=== PATIENT | female | born 1960 | race African-American/Black ===

== ENCOUNTER 2017-07-25 10:42 | Outpatient (CLI) | payer MEDICARE, OTHER ==
[~2017-07-25 10:42] MED LIST: AMLODIPINE BESYL5 MG ORAL; ASPIR 8181 MG GT; CLONIDINE0.1 MG GT; COLACE100 MG ORAL; DILTIAZEM 24HR120 M1 ORAL; FIBERSOURCE HN GT; HUMALOG100 UNIT/4 SUBQ; LEVEMIR100 UNIT/1 SUBQ; LINZESS145 MCG PO; LIPITOR20 MG GT; METOPROLOL SUC100 MG ORAL; MONTELUKAST SOD10 MG ORAL; NOVOLIN R100 UNIT/1 SUBQ; QUINAPRIL HCL20 MG PO; TAPAZOLE10 MG GT; TRADJENTA5 MG GT
[2017-07-25 11:12] VITALS: BP 125/75
--- NOTE | 2017-07-26 13:20 | GI Progress Note ---
Assessment/Plan Problems: (1) Constipation ICD Codes: K59.00 - Constipation, unspecified SNOMED: 77863955 Status: stable Status Narrative Seen with Dr. Cardenas. Assessment/Plan wilman verdugo trial trulance + miralax + dulcolax repeat colonoscopy when constipation improved RTC x 2 months update 08/01/17 >> Trulance not covered by insurance, will do trial of lactulose prior to resubmitting PA. Subjective Gastrointestinal/Abdominal: Reports: constipated Objective BP 125/75 P 82 96 RA General Appearance: WD/WN, no apparent distress, alert Cardiovascular: normal rate Respiratory/Chest: normal breath sounds, no respiratory distress Abdominal Exam: normal bowel sounds, non tender, soft Extremities: normal range of motion, non-tender Estefania Carpio N.P. Jul 26, 2017 13:20
== END 2017-07-25 11:15 | disposition home or self-care (01) ==
LOC: PAN 10:42
DX: K59.00 Constipation, unspecified (principal)
CPT/HCPCS: 99212

== ENCOUNTER 2017-10-14 12:39 | Inpatient (IN) | payer MEDICARE, OTHER ==
[~2017-10-14] VITALS: Ht 170.2 cm; Wt 61.5 kg
[2017-10-14] MEDS ORDERED: Isovue-300 100ml vial INJ PRN (13:30)
[2017-10-14 14:18] LABS: APPEARANCE,URINE CLEAR; BILIRUBIN, URINE NEGATIVE (NEGATIVE); GLUCOSE, URINE (UA) NEGATIVE (NEGATIVE); KETONES,URINE NEGATIVE (NEGATIVE); LEUKOCYTE ESTERASE ,URINE 1+ (NEGATIVE); NITRITE,URINE NEGATIVE (NEGATIVE); PH,URINE 6 (4.5-8.0); PROTEIN,URINE 1+ (NEGATIVE); UROBILINOGEN,URINE NORMAL MG/DL (0.0-1.0)
[2017-10-14 14:26] LABS: COLOR,URINE YELLOW
[2017-10-14 15:03] LABS: HEMATOCRIT 41.5 % (37.0-47.0); HEMOGLOBIN 14.5 G/DL (12.0-16.0); MEAN CORPUSCULAR VOLUME 91 FL (80-99); PLATELET COUNT 213 K/UL (150-450); RED BLOOD COUNT 4.58 M/UL (4.20-5.40); WHITE BLOOD COUNT 11.3 K/UL (4.8-10.8)
[2017-10-14 15:15] LABS: ALANINE AMINOTRANSFERASE 36 U/L (12-78); ALBUMIN 3.8 G/DL (3.4-5.0); ALBUMIN/GLOBULIN RATIO 0.8 (1.0-2.7); ALKALINE PHOSPHATASE 58 U/L (46-116); ANION GAP 14 mmol/L (5-15); ASPARTATE AMINO TRANSFERASE 44 U/L (15-37); BILIRUBIN,TOTAL 0.6 MG/DL (0.2-1.0); BLOOD UREA NITROGEN 14 mg/dL (7-18); CALCIUM 8.7 MG/DL (8.5-10.1); CARBON DIOXIDE 19 MMOL/L (21-32); CHLORIDE 105 MMOL/L (98-107); POTASSIUM 2.8 MMOL/L (3.5-5.1); SODIUM 138 MMOL/L (136-145)
--- NOTE | 2017-10-14 16:01 | Emergency Room Report ---
History of Present Illness General Chief Complaint: Abdominal Pain Source: Family Member Present Illness HPI 57-year-old female presents to the emergency department for demonstrating signs of discomfort/pain upon palpation of the abdomen. She presents with her son whom takes care of her and states that he is concerned that she has some sort of blockage as he is noticing some progressive swelling to the right lower side of the abdomen and patient demonstrates tenderness. Patient denies pain at this time she is noted to have a history of dementia as well as CVA with left- sided residual deficit. Son states that last bowel movement was this morning and was a small amount of stool that was liquid in consistency. Denies Vomiting He Reports Normal Appetite and Normal Fluid Consumption from the Patient. Son states that patient has a long-standing history of constipation as well. History of present illness and ROS are limited due to patient being a poor historian. Information was primarily provided by son. Allergies: Coded Allergies: No Known Allergies (Unverified , 12/03/13) Patient History Past Medical History: see triage record Past Surgical History: none Pertinent Family History: none Reviewed Nursing Documentation: PMH: Agreed; PSxH: Agreed Nursing Documentation-PMH Past Medical History: No History, Except For Hx Cardiac Problems: Yes Hx Hypertension: Yes Hx Diabetes: Yes Hx Cancer: No Hx Gastrointestinal Problems: Yes Hx Neurological Problems: Yes Hx Cerebrovascular Accident: Yes - 01/2011-left sided weakness Review of Systems All Other Systems: negative except mentioned in HPI Physical Exam Vital Signs Date Time Temp Pulse Resp B/P (MAP) Pulse Ox O2 Delivery O2 Flow Rate FiO2 10/14/17 13:03 97.8 63 14 117/75 95 Room Air 97.9 Sp02 EP Interpretation: reviewed, normal General Appearance: no apparent distress, alert, GCS 15, non-toxic, Chronically Ill Head: normocephalic, atraumatic Eyes: bilateral eye normal inspection, bilateral eye PERRL ENT: hearing grossly normal, normal voice Neck: full range of motion Respiratory: chest non-tender, lungs clear, normal breath sounds, speaking full sentences Cardiovascular #1: regular rate, rhythm, no edema Gastrointestinal: normal bowel sounds, non tender, soft Rectal: deferred Genitourinary: other - bladder vs uterine ttp. right sided distention Musculoskeletal: back normal, normal range of motion, non-tender Neurologic: alert, responsive, motor strength/tone normal, sensory intact, speech normal, motor weakness - Left sided residual deficit, grossly normal Psychiatric: other - cognitively impaired but answers some questions. Skin: normal color, no rash, warm/dry, well hydrated Lymphatic: no adenopathy Medical Decision Making PA Attestation Dr. Horton is my supervising Physician whom patient management has been discussed with. Diagnostic Impression: Primary Impression: Urinary obstruction, unspecified Additional Impression: Impacted stool in rectum ER Course 57-year-old female presents to the emergency department for demonstrating signs of discomfort/pain upon palpation of the abdomen. She presents with her son whom takes care of her and states that he is concerned that she has some sort of blockage as he is noticing some progressive swelling to the right lower side of the abdomen and patient demonstrates tenderness. Patient denies pain at this time she is noted to have a history of dementia as well as CVA with left- sided residual deficit. Son states that last bowel movement was this morning and was a small amount of stool that was liquid in consistency. Denies Vomiting He Reports Normal Appetite and Normal Fluid Consumption from the Patient. Son states that patient has a long-standing history of constipation as well. History of present illness and ROS are limited due to patient being a poor historian. Information was primarily provided by son. Ddx considered but are not limited to Diverticulitis, acute appy, diarrhea,UC, PUD, GE, pancreatitis, gallstone, Urinary obstruction, constipation just to name a few. Vital signs: are WNL, pt. is afebrile H&PE are most consistent with abdominal tenderness with right sided distention. ORDERS: -CBC: wbs's 11.3 -CMP: Potassium 2.8 -- given KCL 40 Meq PO -lipase: Unremarkable -UA: Unremarkable- Occasional bacteria, 1+ leukocytes, no white blood cells, some RBCs. These results are questionable with contamination. Will await reflex culture. -Bedside US: large fluid filled enlargement that is contained in the right lower quadrant starting midline, Difficult to determine etiology or identify, suspect urinary bladder. awaiting CT results by radiologist. -CT abdomen and pelvis with IV and oral contrast: Moderate distention of the urinary bladder with obstruction noted secondary to fecal impaction of the rectum. " ED INTERVENTIONS: - Vaughn Inserted -40 Meq of KCL PO DISPOSITION: at this time pt. will be admitted to Dr. Wilburn for Bladder outlet obstruction and severe constipation. Dr. Wilburn agreed to admit the pt. and to continue pt. care management. Labs Test 10/14/17 14:06 10/14/17 14:50 Urine Color Yellow Urine Appearance Clear Urine pH 6 (4.5-8.0) Urine Specific [place] 1.010 (1.005-1.035) Urine Protein 1+ (NEGATIVE) Urine Glucose (UA) Negative (NEGATIVE) Urine Ketones Negative (NEGATIVE) Urine Occult Blood 1+ (NEGATIVE) Urine Nitrite Negative (NEGATIVE) Urine Bilirubin Negative (NEGATIVE) Urine Urobilinogen Normal MG/DL (0.0-1.0) Urine Leukocyte Esterase 1+ (NEGATIVE) Urine RBC 5-10 /HPF (0 - 2) Urine WBC 0-2 /HPF (0 - 2) Urine Squamous Epithelial Cells Few /LPF (NONE/OCC) Urine Bacteria Occasional /HPF (NONE) White Blood Count 11.3 K/UL (4.8-10.8) Red Blood Count 4.58 M/UL (4.20-5.40) Hemoglobin 14.5 G/DL (12.0-16.0) Hematocrit 41.5 % (37.0-47.0) Mean Corpuscular Volume 91 FL (80-99) Mean Corpuscular Hemoglobin 31.6 PG (27.0-31.0) Mean Corpuscular Hemoglobin Concent 34.9 G/DL (32.0-36.0) Red Cell Distribution Width 12.0 % (11.6-14.8) Platelet Count 213 K/UL (150-450) Mean Platelet Volume 7.3 FL (6.5-10.1) Neutrophils (%) (Auto) % (45.0-75.0) Lymphocytes (%) (Auto) % (20.0-45.0) Monocytes (%) (Auto) % (1.0-10.0) Eosinophils (%) (Auto) % (0.0-3.0) Basophils (%) (Auto) % (0.0-2.0) Differential Total Cells Counted 100 Neutrophils % (Manual) 81 % (45-75) Lymphocytes % (Manual) 11 % (20-45) Monocytes % (Manual) 7 % (1-10) Eosinophils % (Manual) 1 % (0-3) Basophils % (Manual) 0 % (0-2) Band Neutrophils 0 % (0-8) Platelet Estimate Adequate Platelet Morphology Normal Red Blood Cell Morphology Normal Sodium Level 138 MMOL/L (136-145) Potassium Level 2.8 MMOL/L (3.5-5.1) Chloride Level 105 MMOL/L (98-107) Carbon Dioxide Level 19 MMOL/L (21-32) Anion Gap 14 mmol/L (5-15) Blood Urea Nitrogen 14 mg/dL (7-18) Creatinine 1.0 MG/DL (0.55-1.30) Estimat Glomerular Filtration Rate > 60 mL/min (>60) Glucose Level 113 MG/DL (74-106) Calcium Level 8.7 MG/DL (8.5-10.1) Total Bilirubin 0.6 MG/DL (0.2-1.0) Aspartate Amino Transf (AST/SGOT) 44 U/L (15-37) Alanine Aminotransferase (ALT/SGPT) 36 U/L (12-78) Alkaline Phosphatase 58 U/L (46-116) Total Protein 8.5 G/DL (6.4-8.2) Albumin 3.8 G/DL (3.4-5.0) Globulin 4.7 g/dL Albumin/Globulin Ratio 0.8 (1.0-2.7) Lipase 294 U/L (73-393) CT/MRI/US Diagnostic Results CT/MRI/US Diagnostic Results : Imaging Test Ordered: CT Abdomen and Pelvis With IV and Oral Contrast Impression "IMPRESSION: 1. Markedly distended, stool-filled rectum (rectal fecalith), with probable at least mild circumferential rectal wall thickening, possibly secondary to stercoral proctitis. 2. Markedly distended urinary bladder (estimated volume = 2000 cc), possibly secondary to bladder outlet obstruction due to the distended stool-filled rectum; mild to moderate probable associated bilateral hydroureteronephrosis. 3. Small hyperenhancing indeterminant subcapsular hepatic nodule. Further evaluation with nonemergent targeted hepatic ultrasound is suggested." Per official radiology report- Please see report for specific details. Last Vital Signs Date Time Temp Pulse Resp B/P (MAP) Pulse Ox O2 Delivery O2 Flow Rate FiO2 10/14/17 13:03 97.8 63 14 117/75 95 Room Air 97.9 Disposition: ADMITTED INPATIENT Condition: Serious Referrals: NON PHYSICIAN (PCP) Mala Hodge Oct 14, 2017 16:01
[2017-10-14 16:11] VITALS: BP 119/79
--- NOTE | 2017-10-14 18:08 | Diagnostic Imaging Report ---
EXAM: CT Abdomen and Pelvis With Intravenous Contrast CLINICAL HISTORY: 57-year-old female with abdominal pain. TECHNIQUE: Axial computed tomography images of the abdomen and pelvis with intravenous contrast. Oral contrast was administered. Coronal and sagittal reformatted images were created and reviewed. CTDI is 11.81 mGy and DLP is 639 mGy-cm. One or more of the following dose reduction techniques were used: automated exposure control, adjustment of the mA and/or kV according to patient size, use of iterative reconstruction technique. COMPARISON: None. FINDINGS: Lung bases: Unremarkable. ABDOMEN: Liver: Ill-defined, subcapsular hyperenhancing nodular focus within the lateral dome of the liver, measuring up to approximately 18 mm in diameter. Gallbladder and bile ducts: Status post cholecystectomy. Pancreas: Unremarkable. Spleen: Unremarkable. Adrenals: Unremarkable. Kidneys and ureters: Relatively symmetric, mild to moderate bilateral hydroureteronephrosis. Stomach and bowel: Markedly distended, stool-filled rectum, measuring up to 11.5 cm in diameter, with probable at least mild circumferential rectal wall thickening. Air-fluid levels within majority of the remaining large bowel. No pathologically dilated bowel loops. PELVIS: Appendix: Unremarkable. Bladder: Markedly distended urinary bladder (estimated volume = 2000 cc). Reproductive: Elongation of the vagina and superior displacement of the uterus abutting the distended bladder dome. ABDOMEN and PELVIS: Intraperitoneal space: Trace ascites. No free air. Bones/joints: No acute abnormality. Soft tissues: Probable scar. Pelvic floor descent. Vasculature: Mild aortic calcified atherosclerotic plaque. Lymph nodes: No pathologically enlarged lymph nodes. IMPRESSION: 1. Markedly distended, stool-filled rectum (rectal fecalith), with probable at least mild circumferential rectal wall thickening, possibly secondary to stercoral proctitis. 2. Markedly distended urinary bladder (estimated volume = 2000 cc), possibly secondary to bladder outlet obstruction due to the distended stool-filled rectum; mild to moderate probable associated bilateral hydroureteronephrosis. 3. Small hyperenhancing indeterminant subcapsular hepatic nodule. Further evaluation with nonemergent targeted hepatic ultrasound is suggested.
[2017-10-14 21:15] VITALS: BP 125/71
[2017-10-15 04:00] VITALS: BP 114/71
[2017-10-15] MEDS: NovoLOG Insulin Flexpen SUBQ SCH ×4 (06:30→20:49)
[2017-10-15 08:00] VITALS: BP 109/73
[2017-10-15] MEDS: Lisinopril 20mg tab ORAL SCH (08:56)
[2017-10-15] MEDS: Montelukast 10mg tablet ORAL SCH (08:56)
[2017-10-15] MEDS: Docusate 100mg cap ORAL SCH ×2 (08:56→18:26)
[2017-10-15] MEDS: Heparin 5000 units/ml inj SUBQ SCH ×2 (08:59→20:50)
[2017-10-15] MEDS: D5 1/2NS 1,000 ML IV SCH (09:22)
--- NOTE | 2017-10-15 10:38 | Consultation ---
History of Present Illness General Date patient seen: Oct 15, 2017 Chief Complaint: Abdominal Pain Present Illness HPI 57 year old female with hx of CVA, HtN, Asthma, DM, bed bound brought in for CC of constipation and urinary obstruction. Pt is aphasic and entire hx is taken from the chart, and pt's son. Pt is currently awake, not communicating. a whitney is in place which is draining normally. Allergies: Coded Allergies: No Known Allergies (Unverified , 12/03/13) Medication History Scheduled Amlodipine Besylate* (Amlodipine Besylate*), 5 MG ORAL DAILY, (Reported) Insulin Detemir (Levemir), 12 SUBQ BEDTIME, (Reported) Insulin Lispro (Humalog), 0 SUBQ SLIDING SCALE, (Reported) Linaclotide (Linzess), 145 MCG PO DAILY, (Reported) Metoprolol Succinate* (Metoprolol Succinate*), 100 MG ORAL HS, (Reported) Montelukast Sodium* (Montelukast Sodium*), 10 MG ORAL DAILY, (Reported) Quinapril Hcl (Quinapril Hcl), 20 MG PO DA, (Reported) Patient History Healthcare decision maker Resuscitation status Full Code Advanced Directive on File No Past Medical/Surgical History Past Medical/Surgical History: (1) Hypertension (2) History of asthma (3) DM (diabetes mellitus) Review of Systems All Other Systems: negative except mentioned in HPI Physical Exam General Appearance: WD/WN Lines, tubes and drains: peripheral HEENT: normocephalic, atraumatic Neck: non-tender, normal alignment Respiratory/Chest: chest wall non-tender, lungs clear Breasts: no masses Cardiovascular/Chest: normal peripheral pulses Abdomen: normal bowel sounds, non tender Genitourinary/Rectal: normal genital exam Extremities: normal range of motion Skin Exam: normal pigmentation Last 24 Hour Vital Signs Date Time Temp Pulse Resp B/P (MAP) Pulse Ox O2 Delivery O2 Flow Rate FiO2 10/15/17 08:56 109/73 10/15/17 08:56 66 109/73 10/15/17 08:00 97.5 66 20 109/73 100 Room Air 97.5 10/15/17 04:00 97.1 65 19 114/71 95 Room Air 97.1 10/14/17 21:45 97.8 63 14 119/79 95 Room Air 97.9 10/14/17 21:15 97.4 89 18 125/71 94 Room Air 97.4 10/14/17 16:11 63 119/79 95 Room Air 10/14/17 13:03 97.8 63 14 117/75 95 Room Air 97.9 Laboratory Tests Test 10/14/17 14:06 10/14/17 14:50 Urine Color Yellow Urine Appearance Clear Urine pH 6 (4.5-8.0) Urine Specific [place] 1.010 (1.005-1.035) Urine Protein 1+ (NEGATIVE) H Urine Glucose (UA) Negative (NEGATIVE) Urine Ketones Negative (NEGATIVE) Urine Occult Blood 1+ (NEGATIVE) H Urine Nitrite Negative (NEGATIVE) Urine Bilirubin Negative (NEGATIVE) Urine Urobilinogen Normal MG/DL (0.0-1.0) Urine Leukocyte Esterase 1+ (NEGATIVE) H Urine RBC 5-10 /HPF (0 - 2) H Urine WBC 0-2 /HPF (0 - 2) Urine Squamous Epithelial Cells Few /LPF (NONE/OCC) Urine Bacteria Occasional /HPF (NONE) White Blood Count 11.3 K/UL (4.8-10.8) H Red Blood Count 4.58 M/UL (4.20-5.40) Hemoglobin 14.5 G/DL (12.0-16.0) Hematocrit 41.5 % (37.0-47.0) Mean Corpuscular Volume 91 FL (80-99) Mean Corpuscular Hemoglobin 31.6 PG (27.0-31.0) H Mean Corpuscular Hemoglobin Concent 34.9 G/DL (32.0-36.0) Red Cell Distribution Width 12.0 % (11.6-14.8) Platelet Count 213 K/UL (150-450) Mean Platelet Volume 7.3 FL (6.5-10.1) Neutrophils (%) (Auto) % (45.0-75.0) Lymphocytes (%) (Auto) % (20.0-45.0) Monocytes (%) (Auto) % (1.0-10.0) Eosinophils (%) (Auto) % (0.0-3.0) Basophils (%) (Auto) % (0.0-2.0) Differential Total Cells Counted 100 Neutrophils % (Manual) 81 % (45-75) H Lymphocytes % (Manual) 11 % (20-45) L Monocytes % (Manual) 7 % (1-10) Eosinophils % (Manual) 1 % (0-3) Basophils % (Manual) 0 % (0-2) Band Neutrophils 0 % (0-8) Platelet Estimate Adequate Platelet Morphology Normal Red Blood Cell Morphology Normal Sodium Level 138 MMOL/L (136-145) Potassium Level 2.8 MMOL/L (3.5-5.1) L Chloride Level 105 MMOL/L (98-107) Carbon Dioxide Level 19 MMOL/L (21-32) L Anion Gap 14 mmol/L (5-15) Blood Urea Nitrogen 14 mg/dL (7-18) Creatinine 1.0 MG/DL (0.55-1.30) Estimat Glomerular Filtration Rate > 60 mL/min (>60) Glucose Level 113 MG/DL (74-106) H Calcium Level 8.7 MG/DL (8.5-10.1) Total Bilirubin 0.6 MG/DL (0.2-1.0) Aspartate Amino Transf (AST/SGOT) 44 U/L (15-37) H Alanine Aminotransferase (ALT/SGPT) 36 U/L (12-78) Alkaline Phosphatase 58 U/L (46-116) Total Protein 8.5 G/DL (6.4-8.2) H Albumin 3.8 G/DL (3.4-5.0) Globulin 4.7 g/dL Albumin/Globulin Ratio 0.8 (1.0-2.7) L Lipase 294 U/L (73-393) Height (Feet): 5 Height (Inches): 7.00 Weight (Pounds): 140 Medications Current Medications Medications (Trade) Dose Ordered Sig/Aleksandr Route PRN Reason Start Time Stop Time Status Last Admin Dose Admin Amlodipine Besylate (Norvasc) 5 mg DAILY ORAL 10/15/17 09:00 11/14/17 08:59 10/15/17 08:56 Bisacodyl (Dulcolax) 10 mg BID PRN RECTAL Constipation 10/15/17 06:15 11/14/17 06:14 Dextrose (Dextrose 50%) 25 ml STAT PRN IV Hypoglycemia 10/15/17 06:15 11/14/17 06:14 Dextrose (Dextrose 50%) 50 ml STAT PRN IV Hypoglycemia 10/15/17 06:15 11/14/17 06:14 Dextrose/Sodium Chloride 1,000 ml @ 70 mls/hr [id number] IV 10/15/17 09:00 11/14/17 08:59 10/15/17 09:22 Docusate Sodium (Colace) 100 mg TWICE A DAY ORAL 10/15/17 09:00 11/14/17 08:59 10/15/17 08:56 Heparin Sodium (Porcine) (Heparin 5000 units/ml) 5,000 units EVERY 12 HOURS SUBQ 10/15/17 09:00 11/14/17 08:59 10/15/17 08:59 Insulin Aspart (NovoLOG) BEFORE MEALS AND HS SUBQ 10/15/17 06:30 11/14/17 06:29 Iopamidol (Isovue-300 100ml) 100 ml NOW PRN INJ Radiology Procedure 10/14/17 13:30 Lactulose (Cephulac) 10 gm THREE TIMES A DAY ORAL 10/15/17 13:00 11/14/17 12:59 Lisinopril (Prinivil) 20 mg DAILY ORAL 10/15/17 09:00 11/14/17 08:59 10/15/17 08:56 Metoprolol Succinate (Toprol XL) 100 mg QHS ORAL 10/15/17 21:00 11/14/17 20:59 Mineral Oil (Fleet's Mineral Oil Enema) 133 ml ONCE ONCE RECTAL 10/15/17 11:25 10/15/17 11:26 Montelukast Sodium (Singulair) 10 mg DAILY ORAL 10/15/17 09:00 11/14/17 08:59 10/15/17 08:56 Non-Formulary Medication (Non-Formulary Med) 1 ea DAILY ORAL 10/15/17 09:00 11/14/17 08:59 UNV Sodium Phosphate (Fleet's Sodium Phosl Enema) 133 ml DAILY PRN RECTAL Constipation 10/15/17 06:15 11/14/17 06:14 Assessment/Plan Problem List: (1) Impacted stool in rectum ICD Codes: K56.41 - Fecal impaction SNOMED: 85388926 (2) History of asthma ICD Codes: Z87.09 - Personal history of other diseases of the respiratory system SNOMED: 079034102 (3) Hypertension ICD Codes: I10 - Essential (primary) hypertension SNOMED: 46966554 (4) Urinary obstruction, unspecified ICD Codes: N13.9 - Obstructive and reflux uropathy, unspecified SNOMED: 5861326 (5) DM (diabetes mellitus) ICD Codes: E11.9 - Type 2 diabetes mellitus without complications SNOMED: 94374188 Assessment/Plan respiratory treatment prn continue Montelukast GI evaluation sliding scale dvt prophylaxis check electrolytes all notes and meds reviewed. Bridget Macias MD Oct 15, 2017 10:38
[2017-10-15] MEDS ORDERED: Fleet's Mineral Oil Enema RECTAL ONE (11:25)
[2017-10-15 12:00] VITALS: BP 126/78
[2017-10-15] MEDS: Fleet's Enema 133ml RECTAL PRN ×2 (12:04→12:11)
[2017-10-15] MEDS: Lactulose 10gm/15ml UDC ORAL SCH ×2 (12:24→18:26)
[2017-10-15 16:00] VITALS: BP 121/78
--- NOTE | 2017-10-15 19:45 | History and Physical Report ---
DATE OF ADMISSION: 10/14/2017 TIME SEEN: 8 a.m. CONSULTANTS: 1. Chang Cardenas M.D. 2. Devendra Toth M.D. 3. Bridget Macias M.D. CHIEF COMPLAINT: Bladder outlet obstruction and constipation. BRIEF HISTORY: This is a 57-year-old female who lives at home, presents to [facility] with constipation as per chart. The patient is confused and not really responding to questions. Constipation for several days. Apparently, she was found to have bladder outlet obstruction. Vaughn was placed. She has some bowel movement subsequently. Currently, admitted to medical floor for further treatment. Currently, calm in bed, not talking much. PAST MEDICAL HISTORY: Diabetes, hypertension and hypothyroid. PAST SURGICAL HISTORY: G-tube. MEDICATIONS: Include Toprol, Colace, Norvasc, Singular, Prinivil and Dulcolax. ALLERGIES: Denies. SOCIAL HISTORY: No smoking. No alcohol. No intravenous drug abuse. FAMILY HISTORY: Noncontributory. REVIEW OF SYSTEMS: Unavailable. PHYSICAL EXAMINATION: GENERAL: Lethargic in bed, not really responding to questions. VITAL SIGNS: Show temperature 97 degrees, pulse 65, respirations 19, and blood pressure 114/71. CARDIOVASCULAR: No murmur. LUNGS: Poor exchange. ABDOMEN: Bowel sounds distant. EXTREMITIES: Show no cyanosis, clubbing, or edema. NEUROLOGIC: The patient moves all extremities, slightly weak. LABORATORY AND DIAGNOSTIC DATA: Show white count 11.3, otherwise CBC is normal. BMP show potassium 2.8, current CO2 19, and glucose 113. AST 44. Urinalysis shows 1+ leukocyte esterase. ASSESSMENT: 1. Urinary tract infection. 2. Bladder outlet obstruction. 3. Constipation. 4. Diabetes. 5. Hypertension. 6. Hypothyroid. 7. Hypokalemia. PLAN: 1. Continue previous medications. 2. Replace potassium. 3. OT/PT dietary evaluation. 4. CBC and BMP in morning. 5. Accu-Chek sliding scale. 6. Laxatives. 7. Dr. Cardenas, Dr. Toth, Dr. Macias, Dr. Ornelas, and Dr. Jones will be consulted. We will continue to follow this patient medically. Edgard Wilburn D.O. DR: Cipriano JOB#: [id number] CC:
[2017-10-15 20:00] VITALS: BP 112/74
[2017-10-15] MEDS: Metoprolol Succinate XL 100mg tab ORAL SCH (20:44)
--- NOTE | 2017-10-15 20:45 | Consultation ---
DATE OF CONSULTATION: 10/15/2017 CHIEF COMPLAINT: Constipation. HISTORY OF PRESENT ILLNESS: This is a very pleasant 57-year-old female, known to me from prior admissions. She has history of diabetes, hypothyroidism, and chronic constipation. She had a colonoscopy, which is incomplete because of poor prep. She has been followed in the office for giving a bowel regimen, which included Trulance, MiraLax, and Colace. She is admitted to the hospital mainly for urinary obstruction and also had on the CT scan evidence of stool impaction. So, GI consult requested for evaluation. PAST MEDICAL HISTORY: 1. Diabetes. 2. Hypothyroidism. 3. First degree AV block. 4. Encephalopathy. 5. Dysphagia, requiring G-tube in the past, which has been removed. 6. Chronic constipation. 7. Anemia. PAST SURGICAL HISTORY: Cholecystectomy. MEDICATIONS: Please see medication reconciliation list. ALLERGIES: No known drug allergies. SOCIAL HISTORY: The patient denies any tobacco, alcohol, or drug abuse. FAMILY HISTORY: No family history of GI malignancies. REVIEW OF SYSTEMS: Limited. PHYSICAL EXAMINATION: VITAL SIGNS: Temperature is 97.5 degrees, pulse is 66, respirations 20, and blood pressure is 109/73. HEENT: Normocephalic and atraumatic. Sclerae anicteric. NECK: Supple. No evidence of lymphadenopathy. CARDIOVASCULAR: Regular rhythm. Plus S1 and S2. No obvious murmur. LUNGS: Decreased breath sounds bilaterally based on the supine exam. ABDOMEN: Soft and nontender. The 01:18 from the old G-tube site is completely closed. No rebound. No guarding. No peritoneal sign. EXTREMITIES: No cyanosis, no clubbing, no edema. LABORATORY DATA: White count 7.3, hemoglobin 14, hematocrit 41, and platelets of 213,000. Sodium 138, potassium 2.8, BUN is 14, and creatinine is 1. ASSESSMENT AND PLAN: A 57-year-old female with severe constipation and stool impaction. Plan to put on bowel regimen including Colace, MiraLax and lactulose. We will give her mineral oil enema today. examinations. We will consider increasing the regimen if needed. Chang Vosoghi, M.D. DR: Ni JOB#: [id number] CC:
[2017-10-16] VITALS: BP 109/67
[2017-10-16] MEDS: D5 1/2NS 1,000 ML IV SCH ×2 (00:43→13:06)
[2017-10-16 04:00] VITALS: BP 112/74
[2017-10-16] MEDS: NovoLOG Insulin Flexpen SUBQ SCH ×4 (05:45→21:32)
[2017-10-16 08:00] VITALS: BP 132/68
[2017-10-16] MEDS: Docusate 100mg cap ORAL SCH ×2 (09:38→17:19)
[2017-10-16] MEDS: Montelukast 10mg tablet ORAL SCH (09:38)
[2017-10-16] MEDS: Lisinopril 20mg tab ORAL SCH (09:38)
[2017-10-16] MEDS: Lactulose 10gm/15ml UDC ORAL SCH ×3 (09:39→17:19)
[2017-10-16] MEDS: Heparin 5000 units/ml inj SUBQ SCH ×2 (09:41→21:30)
[2017-10-16 10:39] LABS: BASOPHILS % (AUTO) 1.3 % (0.0-2.0); EOSINOPHILS % (AUTO) 2.5 % (0.0-3.0); HEMATOCRIT 35.1 % (37.0-47.0); HEMOGLOBIN 11.6 G/DL (12.0-16.0); LYMPHOCYTES % (AUTO) 36.7 % (20.0-45.0); MEAN CORPUSCULAR VOLUME 93 FL (80-99); MONOCYTES % (AUTO) 5.9 % (1.0-10.0); NEUTROPHILS % (AUTO) 53.6 % (45.0-75.0); PLATELET COUNT 196 K/UL (150-450); RED CELL DISTRIBUTION WIDTH 12.1 % (11.6-14.8); WHITE BLOOD COUNT 6.6 K/UL (4.8-10.8)
--- NOTE | 2017-10-16 10:45 | GI Progress Note ---
Assessment/Plan Problems: (1) DM (diabetes mellitus) ICD Codes: E11.9 - Type 2 diabetes mellitus without complications SNOMED: 61735641 (2) Constipation ICD Codes: K59.00 - Constipation, unspecified SNOMED: 84441506 (3) Impacted stool in rectum ICD Codes: K56.41 - Fecal impaction SNOMED: 09278697 (4) Dysphagia ICD Codes: R13.10 - Dysphagia, unspecified SNOMED: 93274301, 705248050 Status: stable Status Narrative Discussed with Dr. Cardenas. Assessment/Plan CT AP reviewed >> stool impaction old GT site healed on diet ppi bowel regime >> lactulose + colace + miralax PT/OT evaluation fu labs The patient was seen and examined at bedside and all new and available data was reviewed in the patients chart. I agree with the above findings, impression and plan. (Patient seen earlier today. Signature stamp does not reflect patient encounter time.). - Chang Cardenas MD Subjective Gastrointestinal/Abdominal: Reports: no symptoms Objective Last 24 Hour Vital Signs Date Time Temp Pulse Resp B/P (MAP) Pulse Ox O2 Delivery O2 Flow Rate FiO2 10/16/17 09:38 132/68 10/16/17 09:38 63 132/68 10/16/17 04:00 97.7 76 16 112/74 95 Room Air 97.7 10/16/17 00:00 97.4 74 16 109/67 94 Room Air 97.4 10/15/17 20:44 83 112/78 10/15/17 20:00 97.4 80 16 112/74 96 Room Air 97.4 10/15/17 16:00 98.1 83 18 121/78 96 Room Air 98.1 10/15/17 12:00 98.3 81 20 126/78 96 98.3 10/15/17 12:00 98.3 81 20 126/78 96 Room Air 98.3 Intake and Output 10/15/17 10/16/17 19:00 07:00 Intake Total 540 ml 870 ml Output Total 600 ml 450 ml Balance -60 ml 420 ml Intake Oral 400 ml 120 ml IV Total 140 ml 750 ml Output Urine Total 600 ml 450 ml # Bowel Movements 2 Laboratory Tests Test 10/16/17 09:43 White Blood Count 6.6 K/UL (4.8-10.8) Red Blood Count 3.80 M/UL (4.20-5.40) L Hemoglobin 11.6 G/DL (12.0-16.0) L Hematocrit 35.1 % (37.0-47.0) L Mean Corpuscular Volume 93 FL (80-99) Mean Corpuscular Hemoglobin 30.6 PG (27.0-31.0) Mean Corpuscular Hemoglobin Concent 33.1 G/DL (32.0-36.0) Red Cell Distribution Width 12.1 % (11.6-14.8) Platelet Count 196 K/UL (150-450) Mean Platelet Volume 7.4 FL (6.5-10.1) Neutrophils (%) (Auto) 53.6 % (45.0-75.0) Lymphocytes (%) (Auto) 36.7 % (20.0-45.0) Monocytes (%) (Auto) 5.9 % (1.0-10.0) Eosinophils (%) (Auto) 2.5 % (0.0-3.0) Basophils (%) (Auto) 1.3 % (0.0-2.0) Sodium Level Pending Potassium Level Pending Chloride Level Pending Carbon Dioxide Level Pending Blood Urea Nitrogen Pending Creatinine Pending Estimat Glomerular Filtration Rate Pending Glucose Level Pending Calcium Level Pending Height (Feet): 5 Height (Inches): 7.00 Weight (Pounds): 140 General Appearance: WD/WN, no apparent distress, alert Cardiovascular: normal rate Respiratory/Chest: normal breath sounds, no respiratory distress Abdominal Exam: normal bowel sounds, non tender, soft, GT site - s/p GT site removal, site is healed Extremities: non-tender Lina Carpio NP Oct 16, 2017 10:45
[2017-10-16 11:11] LABS: ANION GAP 11 mmol/L (5-15); BLOOD UREA NITROGEN 6 mg/dL (7-18); CALCIUM 8.5 MG/DL (8.5-10.1); CARBON DIOXIDE 25 MMOL/L (21-32); CHLORIDE 106 MMOL/L (98-107); CREATININE 0.7 MG/DL (0.55-1.30); POTASSIUM 3.4 MMOL/L (3.5-5.1); SODIUM 141 MMOL/L (136-145)
[2017-10-16 12:00] VITALS: BP 117/71
--- NOTE | 2017-10-16 12:36 | General Progress Note ---
Assessment/Plan Problem List: (1) Alteration consciousness ICD Codes: R40.4 - Transient alteration of awareness SNOMED: 3991709 (2) UTI (lower urinary tract infection) ICD Codes: N39.0 - UTI (lower urinary tract infection) SNOMED: 1638873 (3) Hypothyroid ICD Codes: E03.9 - Hypothyroidism, unspecified SNOMED: 07667124 (4) DM (diabetes mellitus) ICD Codes: E11.9 - Type 2 diabetes mellitus without complications SNOMED: 29552150 (5) Hypertension ICD Codes: I10 - Essential (primary) hypertension SNOMED: 78359285 (6) Impacted stool in rectum ICD Codes: K56.41 - Fecal impaction SNOMED: 44909779 (7) Urinary obstruction, unspecified ICD Codes: N13.9 - Obstructive and reflux uropathy, unspecified SNOMED: 0191537 (8) Constipation ICD Codes: K59.00 - Constipation, unspecified SNOMED: 53159319 Status: unchanged Assessment/Plan ot pt diet abx bp bs control laxitives cbc bmp am Subjective Constitutional: Reports: weakness Allergies: Coded Allergies: No Known Allergies (Unverified , 12/03/13) All Systems: reviewed and negative except above Subjective sleepy calm Objective Last 24 Hour Vital Signs Date Time Temp Pulse Resp B/P (MAP) Pulse Ox O2 Delivery O2 Flow Rate FiO2 10/16/17 12:00 97.9 70 18 117/71 98 Room Air 97.9 10/16/17 09:38 132/68 10/16/17 09:38 63 132/68 10/16/17 08:00 98.8 63 18 132/68 97 Room Air 98.8 10/16/17 04:00 97.7 76 16 112/74 95 Room Air 97.7 10/16/17 00:00 97.4 74 16 109/67 94 Room Air 97.4 10/15/17 20:44 83 112/78 10/15/17 20:00 97.4 80 16 112/74 96 Room Air 97.4 10/15/17 16:00 98.1 83 18 121/78 96 Room Air 98.1 Intake and Output 10/15/17 10/16/17 19:00 07:00 Intake Total 540 ml 870 ml Output Total 600 ml 450 ml Balance -60 ml 420 ml Intake Oral 400 ml 120 ml IV Total 140 ml 750 ml Output Urine Total 600 ml 450 ml # Bowel Movements 2 Laboratory Tests 10/16/17 09:43: White Blood Count 6.6, Red Blood Count 3.80L, Hemoglobin 11.6L, Hematocrit 35.1L , Mean Corpuscular Volume 93, Mean Corpuscular Hemoglobin 30.6, Mean Corpuscular Hemoglobin Concent 33.1, Red Cell Distribution Width 12.1, Platelet Count 196, Mean Platelet Volume 7.4, Neutrophils (%) (Auto) 53.6, Lymphocytes (% ) (Auto) 36.7, Monocytes (%) (Auto) 5.9, Eosinophils (%) (Auto) 2.5, Basophils ( %) (Auto) 1.3, Sodium Level 141, Potassium Level 3.4L, Chloride Level 106, Carbon Dioxide Level 25, Anion Gap 11, Blood Urea Nitrogen 6L, Creatinine 0.7, Estimat Glomerular Filtration Rate > 60, Glucose Level 89, Calcium Level 8.5 Height (Feet): 5 Height (Inches): 7.00 Weight (Pounds): 140 General Appearance: lethargic EENT: normal ENT inspection Neck: normal alignment Cardiovascular: normal peripheral pulses, normal rate, regular rhythm Respiratory/Chest: chest wall non-tender, lungs clear, normal breath sounds Abdomen: normal bowel sounds, non tender, soft Extremities: normal inspection Edema: no edema noted Arm (L), no edema noted Arm (R), no edema noted Leg (L), no edema noted Leg (R), no edema noted Pedal (L), no edema noted Pedal (R), no edema noted Generalized Neurologic: motor weakness Skin: normal pigmentation, warm/dry Edgard Wilburn DO Oct 16, 2017 12:36
--- NOTE | 2017-10-16 13:24 | Pulmonology Progress Note ---
Assessment/Plan Problems: (1) History of asthma (2) Impacted stool in rectum (3) Hypertension (4) Urinary obstruction, unspecified (5) DM (diabetes mellitus) Assessment/Plan eating well symptomatic treatment respiratory treatment prn titrate fio2 to sat of 92% sliding scale dc planning Subjective ROS Limited/Unobtainable: No Constitutional: Reports: no symptoms HEENT: Repors: no symptoms Respiratory: Reports: no symptoms Allergies: Coded Allergies: No Known Allergies (Unverified , 12/03/13) Objective Last 24 Hour Vital Signs Date Time Temp Pulse Resp B/P (MAP) Pulse Ox O2 Delivery O2 Flow Rate FiO2 10/16/17 12:00 97.9 70 18 117/71 98 Room Air 97.9 10/16/17 09:38 132/68 10/16/17 09:38 63 132/68 10/16/17 08:00 98.8 63 18 132/68 97 Room Air 98.8 10/16/17 04:00 97.7 76 16 112/74 95 Room Air 97.7 10/16/17 00:00 97.4 74 16 109/67 94 Room Air 97.4 10/15/17 20:44 83 112/78 10/15/17 20:00 97.4 80 16 112/74 96 Room Air 97.4 10/15/17 16:00 98.1 83 18 121/78 96 Room Air 98.1 Intake and Output 10/15/17 10/16/17 19:00 07:00 Intake Total 540 ml 870 ml Output Total 600 ml 450 ml Balance -60 ml 420 ml Intake Oral 400 ml 120 ml IV Total 140 ml 750 ml Output Urine Total 600 ml 450 ml # Bowel Movements 2 General Appearance: WD/WN HEENT: normocephalic, atraumatic Respiratory/Chest: chest wall non-tender, lungs clear Breasts: no masses Cardiovascular: normal peripheral pulses Extremities: no clubbing Skin: no rash Laboratory Tests 10/16/17 09:43: White Blood Count 6.6, Red Blood Count 3.80L, Hemoglobin 11.6L, Hematocrit 35.1L , Mean Corpuscular Volume 93, Mean Corpuscular Hemoglobin 30.6, Mean Corpuscular Hemoglobin Concent 33.1, Red Cell Distribution Width 12.1, Platelet Count 196, Mean Platelet Volume 7.4, Neutrophils (%) (Auto) 53.6, Lymphocytes (% ) (Auto) 36.7, Monocytes (%) (Auto) 5.9, Eosinophils (%) (Auto) 2.5, Basophils ( %) (Auto) 1.3, Sodium Level 141, Potassium Level 3.4L, Chloride Level 106, Carbon Dioxide Level 25, Anion Gap 11, Blood Urea Nitrogen 6L, Creatinine 0.7, Estimat Glomerular Filtration Rate > 60, Glucose Level 89, Calcium Level 8.5 Current Medications Medications (Trade) Dose Ordered Sig/Aleksandr Route PRN Reason Start Time Stop Time Status Last Admin Dose Admin Amlodipine Besylate (Norvasc) 5 mg DAILY ORAL 10/15/17 09:00 11/14/17 08:59 10/16/17 09:38 Bisacodyl (Dulcolax) 10 mg BID PRN RECTAL Constipation 10/15/17 06:15 11/14/17 06:14 Dextrose (Dextrose 50%) 25 ml STAT PRN IV Hypoglycemia 10/15/17 06:15 11/14/17 06:14 Dextrose (Dextrose 50%) 50 ml STAT PRN IV Hypoglycemia 10/15/17 06:15 11/14/17 06:14 Dextrose/Sodium Chloride 1,000 ml @ 70 mls/hr [id number] IV 10/15/17 09:00 11/14/17 08:59 10/16/17 13:06 Docusate Sodium (Colace) 100 mg TWICE A DAY ORAL 10/15/17 09:00 11/14/17 08:59 10/16/17 09:38 Heparin Sodium (Porcine) (Heparin 5000 units/ml) 5,000 units EVERY 12 HOURS SUBQ 10/15/17 09:00 11/14/17 08:59 10/16/17 09:41 Insulin Aspart (NovoLOG) BEFORE MEALS AND HS SUBQ 10/15/17 06:30 11/14/17 06:29 10/15/17 20:49 Iopamidol (Isovue-300 100ml) 100 ml NOW PRN INJ Radiology Procedure 10/14/17 13:30 10/16/17 13:29 Lactulose (Cephulac) 10 gm THREE TIMES A DAY ORAL 10/15/17 13:00 11/14/17 12:59 10/16/17 13:07 Lisinopril (Prinivil) 20 mg DAILY ORAL 10/15/17 09:00 11/14/17 08:59 10/16/17 09:38 Metoprolol Succinate (Toprol XL) 100 mg QHS ORAL 10/15/17 21:00 11/14/17 20:59 Montelukast Sodium (Singulair) 10 mg DAILY ORAL 10/15/17 09:00 11/14/17 08:59 10/16/17 09:38 Non-Formulary Medication (Non-Formulary Med) 1 ea DAILY ORAL 10/15/17 09:00 11/14/17 08:59 UNV Sodium Phosphate (Fleet's Sodium Phosl Enema) 133 ml DAILY PRN RECTAL Constipation 10/15/17 06:15 11/14/17 06:14 10/15/17 12:11 Bridget Macias MD Oct 16, 2017 13:24
[2017-10-16 16:00] VITALS: BP 130/63
[2017-10-16 20:00] VITALS: BP 138/84
[2017-10-16] MEDS: Metoprolol Succinate XL 100mg tab ORAL SCH (21:25)
[2017-10-17 00:26] VITALS: BP 133/78
[2017-10-17] MEDS: D5 1/2NS 1,000 ML IV SCH (04:08)
[2017-10-17 04:36] VITALS: BP_SYST 109; BP_SYST 96; BP_DIAS 57; BP_DIAS 69
[2017-10-17] MEDS: NovoLOG Insulin Flexpen SUBQ SCH ×4 (06:30→21:00)
[2017-10-17 07:22] LABS: HEMATOCRIT 32.8 % (37.0-47.0); HEMOGLOBIN 11.6 G/DL (12.0-16.0); LYMPHOCYTES % (AUTO) 37.4 % (20.0-45.0); MEAN CORPUSCULAR VOLUME 91 FL (80-99); MONOCYTES % (AUTO) 6.1 % (1.0-10.0); NEUTROPHILS % (AUTO) 52.6 % (45.0-75.0); PLATELET COUNT 193 K/UL (150-450); RED CELL DISTRIBUTION WIDTH 12.2 % (11.6-14.8); WHITE BLOOD COUNT 6.7 K/UL (4.8-10.8)
[2017-10-17 07:32] LABS: ANION GAP 10 mmol/L (5-15); BLOOD UREA NITROGEN 5 mg/dL (7-18); CALCIUM 8.4 MG/DL (8.5-10.1); CARBON DIOXIDE 26 MMOL/L (21-32); CHLORIDE 106 MMOL/L (98-107); CREATININE 0.7 MG/DL (0.55-1.30); POTASSIUM 3.1 MMOL/L (3.5-5.1); SODIUM 142 MMOL/L (136-145)
[2017-10-17 08:00] VITALS: BP 119/74
[2017-10-17] MEDS: Lisinopril 20mg tab ORAL SCH (09:00)
[2017-10-17] MEDS: Docusate 100mg cap ORAL SCH ×2 (09:42→17:17)
[2017-10-17] MEDS: Lactulose 10gm/15ml UDC ORAL SCH ×3 (09:42→17:17)
[2017-10-17] MEDS: Montelukast 10mg tablet ORAL SCH (09:42)
[2017-10-17] MEDS: Heparin 5000 units/ml inj SUBQ SCH ×2 (09:44→20:58)
[2017-10-17 11:59] VITALS: BP 106/67
--- NOTE | 2017-10-17 12:57 | Pulmonology Progress Note ---
Assessment/Plan Problems: (1) History of asthma (2) Impacted stool in rectum (3) Hypertension (4) Urinary obstruction, unspecified (5) DM (diabetes mellitus) Assessment/Plan awake, comfortable eating well symptomatic treatment respiratory treatment prn titrate fio2 to sat of 92% sliding scale dc planning Subjective ROS Limited/Unobtainable: No Constitutional: Reports: no symptoms HEENT: Repors: no symptoms Respiratory: Reports: no symptoms Allergies: Coded Allergies: No Known Allergies (Unverified , 12/03/13) Objective Last 24 Hour Vital Signs Date Time Temp Pulse Resp B/P (MAP) Pulse Ox O2 Delivery O2 Flow Rate FiO2 10/17/17 11:59 98.1 69 18 106/67 97 98.1 10/17/17 09:43 69 119/74 10/17/17 09:00 119/74 10/17/17 08:00 97.0 69 18 119/74 100 97.0 10/17/17 04:36 97.7 61 16 96/57 96 97.7 10/17/17 00:26 97.7 80 18 133/78 97 97.7 10/16/17 21:25 84 138/74 10/16/17 20:00 97.8 84 19 138/84 97 97.8 10/16/17 16:00 97.4 70 18 130/63 98 Room Air 97.4 Intake and Output 10/16/17 10/17/17 19:00 07:00 Intake Total 1420 ml 1410 ml Output Total 450 ml 1200 ml Balance 970 ml 210 ml Intake Oral 640 ml IV Total 770 ml 770 ml Other 650 ml Output Urine Total 450 ml 1200 ml # Bowel Movements 1 General Appearance: WD/WN HEENT: normocephalic Respiratory/Chest: chest wall non-tender, lungs clear Breasts: no masses Cardiovascular: normal peripheral pulses Abdomen: normal bowel sounds, no organomegaly Genitourinary: normal external genitalia Extremities: no clubbing Laboratory Tests 10/17/17 06:30: White Blood Count 6.7, Red Blood Count 3.60L, Hemoglobin 11.6L, Hematocrit 32.8L , Mean Corpuscular Volume 91, Mean Corpuscular Hemoglobin 32.1H, Mean Corpuscular Hemoglobin Concent 35.3, Red Cell Distribution Width 12.2, Platelet Count 193, Mean Platelet Volume 7.2, Neutrophils (%) (Auto) 52.6, Lymphocytes (% ) (Auto) 37.4, Monocytes (%) (Auto) 6.1, Eosinophils (%) (Auto) 3.0, Basophils ( %) (Auto) 1.0, Sodium Level 142, Potassium Level 3.1L, Chloride Level 106, Carbon Dioxide Level 26, Anion Gap 10, Blood Urea Nitrogen 5L, Creatinine 0.7, Estimat Glomerular Filtration Rate > 60, Glucose Level 108H, Calcium Level 8.4L Current Medications Medications (Trade) Dose Ordered Sig/Aleksandr Route PRN Reason Start Time Stop Time Status Last Admin Dose Admin Amlodipine Besylate (Norvasc) 5 mg DAILY ORAL 10/15/17 09:00 11/14/17 08:59 10/17/17 09:43 Bisacodyl (Dulcolax) 10 mg BID PRN RECTAL Constipation 10/15/17 06:15 11/14/17 06:14 Dextrose (Dextrose 50%) 25 ml STAT PRN IV Hypoglycemia 10/15/17 06:15 11/14/17 06:14 Dextrose (Dextrose 50%) 50 ml STAT PRN IV Hypoglycemia 10/15/17 06:15 11/14/17 06:14 Dextrose/Sodium Chloride 1,000 ml @ 70 mls/hr [id number] IV 10/15/17 09:00 11/14/17 08:59 10/17/17 04:08 Docusate Sodium (Colace) 100 mg TWICE A DAY ORAL 10/15/17 09:00 11/14/17 08:59 10/17/17 09:42 Heparin Sodium (Porcine) (Heparin 5000 units/ml) 5,000 units EVERY 12 HOURS SUBQ 10/15/17 09:00 11/14/17 08:59 10/17/17 09:44 Insulin Aspart (NovoLOG) BEFORE MEALS AND HS SUBQ 10/15/17 06:30 11/14/17 06:29 10/17/17 12:31 Lactulose (Cephulac) 10 gm THREE TIMES A DAY ORAL 10/15/17 13:00 11/14/17 12:59 10/17/17 12:32 Lisinopril (Prinivil) 20 mg DAILY ORAL 10/15/17 09:00 11/14/17 08:59 10/16/17 09:38 Metoprolol Succinate (Toprol XL) 100 mg QHS ORAL 10/15/17 21:00 11/14/17 20:59 10/16/17 21:25 Montelukast Sodium (Singulair) 10 mg DAILY ORAL 10/15/17 09:00 11/14/17 08:59 10/17/17 09:42 Non-Formulary Medication (Non-Formulary Med) 1 ea DAILY ORAL 10/15/17 09:00 11/14/17 08:59 UNV Sodium Phosphate (Fleet's Sodium Phosl Enema) 133 ml DAILY PRN RECTAL Constipation 10/15/17 06:15 11/14/17 06:14 10/15/17 12:11 Bridget Macias MD Oct 17, 2017 12:57
--- NOTE | 2017-10-17 13:39 | Consultation ---
Consult Note Consult Note 57-year-old female presents to the emergency department for demonstrating signs of discomfort/pain upon palpation of the abdomen. She presents with her son whom takes care of her and states that he is concerned that she has some sort of blockage as he is noticing some progressive swelling to the right lower side of the abdomen and patient demonstrates tenderness. Patient denies pain at this time she is noted to have a history of dementia as well as CVA with left- sided residual deficit. Son states that last bowel movement was this morning and was a small amount of stool that was liquid in consistency. Denies Vomiting He Reports Normal Appetite and Normal Fluid Consumption from the Patient. Son states that patient has a long-standing history of constipation as well. History of present illness and ROS are limited due to patient being a poor historian. Information was primarily provided by son. Past Medical History: No History, Except For Hx Cardiac Problems: Yes Hx Hypertension: Yes Hx Diabetes: Yes Hx Cancer: No Hx Gastrointestinal Problems: Yes Hx Neurological Problems: Yes Hx Cerebrovascular Accident: Yes - 01/2011-left sided weakness Assessment/Plan HypoKalemia Dehydration HTN mild anemia Others: 1) History of asthma (2) Impacted stool in rectum (3) Hypertension (4) Urinary obstruction, unspecified (5) DM (diabetes mellitus) PO KCL DC IV adjust BP meds Anemia DENISHA Romero Oct 17, 2017 13:39
[2017-10-17 14:08] LABS: ALANINE AMINOTRANSFERASE 30 U/L (12-78); ALBUMIN 3.3 G/DL (3.4-5.0); ALKALINE PHOSPHATASE 42 U/L (46-116); ASPARTATE AMINO TRANSFERASE 27 U/L (15-37); BILIRUBIN,DIRECT 0.1 MG/DL (0.0-0.3); BILIRUBIN,TOTAL 0.4 MG/DL (0.2-1.0); CHOLESTEROL 254 MG/DL (< 200); GAMMA GLUTAMYL TRANSPEPTIDASE 28 U/L (5-85); HDL CHOLESTEROL 61 MG/DL (40-60); TRIGLYCERIDES 104 MG/DL (30-150)
--- NOTE | 2017-10-17 14:08 | General Progress Note ---
Assessment/Plan Problem List: (1) Alteration consciousness ICD Codes: R40.4 - Transient alteration of awareness SNOMED: 4158909 (2) UTI (lower urinary tract infection) ICD Codes: N39.0 - UTI (lower urinary tract infection) SNOMED: 9032303 (3) Hypothyroid ICD Codes: E03.9 - Hypothyroidism, unspecified SNOMED: 01679772 (4) DM (diabetes mellitus) ICD Codes: E11.9 - Type 2 diabetes mellitus without complications SNOMED: 55241054 (5) Hypertension ICD Codes: I10 - Essential (primary) hypertension SNOMED: 27795144 (6) Impacted stool in rectum ICD Codes: K56.41 - Fecal impaction SNOMED: 43683557 (7) Urinary obstruction, unspecified ICD Codes: N13.9 - Obstructive and reflux uropathy, unspecified SNOMED: 2555211 (8) Constipation ICD Codes: K59.00 - Constipation, unspecified SNOMED: 32725592 Status: stable, progressing Assessment/Plan ot pt diet abx bp bs control laxitives cbc bmp am dc plan w hh Subjective Constitutional: Reports: weakness Allergies: Coded Allergies: No Known Allergies (Unverified , 12/03/13) All Systems: reviewed and negative except above Subjective sleepy calm Objective Last 24 Hour Vital Signs Date Time Temp Pulse Resp B/P (MAP) Pulse Ox O2 Delivery O2 Flow Rate FiO2 10/17/17 11:59 98.1 69 18 106/67 97 98.1 10/17/17 09:43 69 119/74 10/17/17 09:00 119/74 10/17/17 08:00 97.0 69 18 119/74 100 97.0 10/17/17 04:36 97.7 61 16 96/57 96 97.7 10/17/17 00:26 97.7 80 18 133/78 97 97.7 10/16/17 21:25 84 138/74 10/16/17 20:00 97.8 84 19 138/84 97 97.8 10/16/17 16:00 97.4 70 18 130/63 98 Room Air 97.4 Intake and Output 10/16/17 10/17/17 19:00 07:00 Intake Total 1420 ml 1410 ml Output Total 450 ml 1200 ml Balance 970 ml 210 ml Intake Oral 640 ml IV Total 770 ml 770 ml Other 650 ml Output Urine Total 450 ml 1200 ml # Bowel Movements 1 Laboratory Tests 10/17/17 06:30: White Blood Count 6.7, Red Blood Count 3.60L, Hemoglobin 11.6L, Hematocrit 32.8L , Mean Corpuscular Volume 91, Mean Corpuscular Hemoglobin 32.1H, Mean Corpuscular Hemoglobin Concent 35.3, Red Cell Distribution Width 12.2, Platelet Count 193, Mean Platelet Volume 7.2, Neutrophils (%) (Auto) 52.6, Lymphocytes (% ) (Auto) 37.4, Monocytes (%) (Auto) 6.1, Eosinophils (%) (Auto) 3.0, Basophils ( %) (Auto) 1.0, Sodium Level 142, Potassium Level 3.1L, Chloride Level 106, Carbon Dioxide Level 26, Anion Gap 10, Blood Urea Nitrogen 5L, Creatinine 0.7, Estimat Glomerular Filtration Rate > 60, Glucose Level 108H, Uric Acid [Pending] , Calcium Level 8.4L, Phosphorus Level [Pending], Magnesium Level [Pending], Iron Level [Pending], Unsaturated Iron Binding [Pending], Ferritin [Pending], Total Bilirubin [Pending], Direct Bilirubin [Pending], Gamma Glutamyl Transpeptidase [Pending], Aspartate Amino Transf (AST/SGOT) [Pending], Alanine Aminotransferase (ALT/SGPT) [Pending], Alkaline Phosphatase [Pending], Total Protein [Pending], Albumin [Pending], Triglycerides Level [Pending], Cholesterol Level [Pending], LDL Cholesterol [Pending], HDL Cholesterol [Pending ], Cholesterol/HDL Ratio [Pending], Vitamin B12 Level [Pending], Folate [Pending ], Thyroid Stimulating Hormone (TSH) [Pending] Height (Feet): 5 Height (Inches): 7.00 Weight (Pounds): 140 General Appearance: lethargic, confused EENT: normal ENT inspection Neck: normal alignment Cardiovascular: normal peripheral pulses, normal rate, regular rhythm Respiratory/Chest: chest wall non-tender, lungs clear, normal breath sounds Abdomen: normal bowel sounds, non tender, soft Extremities: normal inspection Edema: no edema noted Arm (L), no edema noted Arm (R), no edema noted Leg (L), no edema noted Leg (R), no edema noted Pedal (L), no edema noted Pedal (R), no edema noted Generalized Neurologic: motor weakness Skin: normal pigmentation, warm/dry Edgard Wilburn DO Oct 17, 2017 14:08
--- NOTE | 2017-10-17 14:09 | Pulmonology Progress Note ---
Assessment/Plan Problems: (1) History of asthma (2) Impacted stool in rectum (3) Hypertension (4) Urinary obstruction, unspecified (5) DM (diabetes mellitus) Assessment/Plan awake, comfortable eating well symptomatic treatment respiratory treatment prn titrate fio2 to sat of 92% sliding scale dc planning Subjective ROS Limited/Unobtainable: No Interval Events: comfortable, ate well Allergies: Coded Allergies: No Known Allergies (Unverified , 12/03/13) Objective Last 24 Hour Vital Signs Date Time Temp Pulse Resp B/P (MAP) Pulse Ox O2 Delivery O2 Flow Rate FiO2 10/17/17 11:59 98.1 69 18 106/67 97 98.1 10/17/17 09:43 69 119/74 10/17/17 09:00 119/74 10/17/17 08:00 97.0 69 18 119/74 100 97.0 10/17/17 04:36 97.7 61 16 96/57 96 97.7 10/17/17 00:26 97.7 80 18 133/78 97 97.7 10/16/17 21:25 84 138/74 10/16/17 20:00 97.8 84 19 138/84 97 97.8 10/16/17 16:00 97.4 70 18 130/63 98 Room Air 97.4 Intake and Output 10/16/17 10/17/17 19:00 07:00 Intake Total 1420 ml 1410 ml Output Total 450 ml 1200 ml Balance 970 ml 210 ml Intake Oral 640 ml IV Total 770 ml 770 ml Other 650 ml Output Urine Total 450 ml 1200 ml # Bowel Movements 1 General Appearance: WD/WN HEENT: normocephalic Respiratory/Chest: chest wall non-tender, lungs clear Cardiovascular: normal peripheral pulses, normal rate Abdomen: normal bowel sounds, soft, non tender Genitourinary: normal external genitalia Neurologic/Psychiatric: direct mail marketer II-XII grossly normal Laboratory Tests 10/17/17 06:30: White Blood Count 6.7, Red Blood Count 3.60L, Hemoglobin 11.6L, Hematocrit 32.8L , Mean Corpuscular Volume 91, Mean Corpuscular Hemoglobin 32.1H, Mean Corpuscular Hemoglobin Concent 35.3, Red Cell Distribution Width 12.2, Platelet Count 193, Mean Platelet Volume 7.2, Neutrophils (%) (Auto) 52.6, Lymphocytes (% ) (Auto) 37.4, Monocytes (%) (Auto) 6.1, Eosinophils (%) (Auto) 3.0, Basophils ( %) (Auto) 1.0, Sodium Level 142, Potassium Level 3.1L, Chloride Level 106, Carbon Dioxide Level 26, Anion Gap 10, Blood Urea Nitrogen 5L, Creatinine 0.7, Estimat Glomerular Filtration Rate > 60, Glucose Level 108H, Uric Acid [Pending] , Calcium Level 8.4L, Phosphorus Level [Pending], Magnesium Level [Pending], Iron Level [Pending], Unsaturated Iron Binding [Pending], Ferritin [Pending], Total Bilirubin [Pending], Direct Bilirubin [Pending], Gamma Glutamyl Transpeptidase [Pending], Aspartate Amino Transf (AST/SGOT) [Pending], Alanine Aminotransferase (ALT/SGPT) [Pending], Alkaline Phosphatase [Pending], Total Protein [Pending], Albumin [Pending], Triglycerides Level [Pending], Cholesterol Level [Pending], LDL Cholesterol [Pending], HDL Cholesterol [Pending ], Cholesterol/HDL Ratio [Pending], Vitamin B12 Level [Pending], Folate [Pending ], Thyroid Stimulating Hormone (TSH) [Pending] Current Medications Medications (Trade) Dose Ordered Sig/Aleksandr Route PRN Reason Start Time Stop Time Status Last Admin Dose Admin Amlodipine Besylate (Norvasc) 2.5 mg DAILY ORAL 10/18/17 09:00 11/14/17 08:59 Bisacodyl (Dulcolax) 10 mg BID PRN RECTAL Constipation 10/15/17 06:15 11/14/17 06:14 Dextrose (Dextrose 50%) 25 ml STAT PRN IV Hypoglycemia 10/15/17 06:15 11/14/17 06:14 Dextrose (Dextrose 50%) 50 ml STAT PRN IV Hypoglycemia 10/15/17 06:15 11/14/17 06:14 Docusate Sodium (Colace) 100 mg TWICE A DAY ORAL 10/15/17 09:00 11/14/17 08:59 10/17/17 09:42 Heparin Sodium (Porcine) (Heparin 5000 units/ml) 5,000 units EVERY 12 HOURS SUBQ 10/15/17 09:00 11/14/17 08:59 10/17/17 09:44 Insulin Aspart (NovoLOG) BEFORE MEALS AND HS SUBQ 10/15/17 06:30 11/14/17 06:29 10/17/17 12:31 Lactulose (Cephulac) 10 gm THREE TIMES A DAY ORAL 10/15/17 13:00 11/14/17 12:59 10/17/17 12:32 Lisinopril (Zestril) 10 mg DAILY ORAL 10/18/17 09:00 11/14/17 08:59 Metoprolol Succinate (Toprol XL) 100 mg QHS ORAL 10/15/17 21:00 11/14/17 20:59 10/16/17 21:25 Montelukast Sodium (Singulair) 10 mg DAILY ORAL 10/15/17 09:00 11/14/17 08:59 10/17/17 09:42 Non-Formulary Medication (Non-Formulary Med) 1 ea DAILY ORAL 10/15/17 09:00 11/14/17 08:59 UNV Potassium Chloride (K-Dur) 40 meq DAILY ORAL 10/18/17 09:00 11/17/17 08:59 Potassium Chloride (K-Dur) 40 meq ONCE ORAL 10/17/17 14:15 10/17/17 15:15 Sodium Phosphate (Fleet's Sodium Phosl Enema) 133 ml DAILY PRN RECTAL Constipation 10/15/17 06:15 11/14/17 06:14 10/15/17 12:11 Bridget Macias MD Oct 17, 2017 14:09
[2017-10-17 14:23] LABS: FERRITIN 160 NG/ML (8-388)
[2017-10-17 14:39] LABS: % IRON SATURATION 35 % (15-50); IRON 71 ug/dL (50-175); TOTAL IRON BINDING CAPACITY 205 ug/dL (250-450)
[2017-10-17 16:00] VITALS: BP 117/69
--- NOTE | 2017-10-17 16:10 | GI Progress Note ---
Assessment/Plan Problems: (1) DM (diabetes mellitus) ICD Codes: E11.9 - Type 2 diabetes mellitus without complications SNOMED: 71450590 (2) Constipation ICD Codes: K59.00 - Constipation, unspecified SNOMED: 54214793 (3) Impacted stool in rectum ICD Codes: K56.41 - Fecal impaction SNOMED: 41343853 (4) Dysphagia ICD Codes: R13.10 - Dysphagia, unspecified SNOMED: 81362623, 162849689 Status: stable Status Narrative Discussed with Dr. Cardenas. Assessment/Plan CT AP reviewed >> stool impaction old GT site healed anemia work up reviewed >> folate deficiency on diet ppi bowel regime >> lactulose + colace + miralax PT/OT evaluation fu labs outpatient GI procedures dc planning The patient was seen and examined at bedside and all new and available data was reviewed in the patients chart. I agree with the above findings, impression and plan. (Patient seen earlier today. Signature stamp does not reflect patient encounter time.). - Chang Cardenas MD Subjective Gastrointestinal/Abdominal: Reports: no symptoms Objective Last 24 Hour Vital Signs Date Time Temp Pulse Resp B/P (MAP) Pulse Ox O2 Delivery O2 Flow Rate FiO2 10/17/17 11:59 98.1 69 18 106/67 97 98.1 10/17/17 09:43 69 119/74 10/17/17 09:00 119/74 10/17/17 08:00 97.0 69 18 119/74 100 97.0 10/17/17 04:36 97.7 61 16 96/57 96 97.7 10/17/17 00:26 97.7 80 18 133/78 97 97.7 10/16/17 21:25 84 138/74 10/16/17 20:00 97.8 84 19 138/84 97 97.8 Intake and Output 10/16/17 10/17/17 19:00 07:00 Intake Total 1420 ml 1410 ml Output Total 450 ml 1200 ml Balance 970 ml 210 ml Intake Oral 640 ml IV Total 770 ml 770 ml Other 650 ml Output Urine Total 450 ml 1200 ml # Bowel Movements 1 Laboratory Tests Test 10/17/17 06:30 White Blood Count 6.7 K/UL (4.8-10.8) Red Blood Count 3.60 M/UL (4.20-5.40) L Hemoglobin 11.6 G/DL (12.0-16.0) L Hematocrit 32.8 % (37.0-47.0) L Mean Corpuscular Volume 91 FL (80-99) Mean Corpuscular Hemoglobin 32.1 PG (27.0-31.0) H Mean Corpuscular Hemoglobin Concent 35.3 G/DL (32.0-36.0) Red Cell Distribution Width 12.2 % (11.6-14.8) Platelet Count 193 K/UL (150-450) Mean Platelet Volume 7.2 FL (6.5-10.1) Neutrophils (%) (Auto) 52.6 % (45.0-75.0) Lymphocytes (%) (Auto) 37.4 % (20.0-45.0) Monocytes (%) (Auto) 6.1 % (1.0-10.0) Eosinophils (%) (Auto) 3.0 % (0.0-3.0) Basophils (%) (Auto) 1.0 % (0.0-2.0) Sodium Level 142 MMOL/L (136-145) Potassium Level 3.1 MMOL/L (3.5-5.1) L Chloride Level 106 MMOL/L (98-107) Carbon Dioxide Level 26 MMOL/L (21-32) Anion Gap 10 mmol/L (5-15) Blood Urea Nitrogen 5 mg/dL (7-18) L Creatinine 0.7 MG/DL (0.55-1.30) Estimat Glomerular Filtration Rate > 60 mL/min (>60) Glucose Level 108 MG/DL (74-106) H Uric Acid 3.1 MG/DL (2.6-7.2) Calcium Level 8.4 MG/DL (8.5-10.1) L Phosphorus Level 3.0 MG/DL (2.5-4.9) Magnesium Level 2.1 MG/DL (1.8-2.4) Iron Level 71 ug/dL (50-175) Total Iron Binding Capacity 205 ug/dL (250-450) L Percent Iron Saturation 35 % (15-50) Unsaturated Iron Binding 134 ug/dL (112-346) Ferritin 160 NG/ML (8-388) Total Bilirubin 0.4 MG/DL (0.2-1.0) Direct Bilirubin 0.1 MG/DL (0.0-0.3) Gamma Glutamyl Transpeptidase 28 U/L (5-85) Aspartate Amino Transf (AST/SGOT) 27 U/L (15-37) Alanine Aminotransferase (ALT/SGPT) 30 U/L (12-78) Alkaline Phosphatase 42 U/L (46-116) L Total Protein 7.2 G/DL (6.4-8.2) Albumin 3.3 G/DL (3.4-5.0) L Triglycerides Level 104 MG/DL (30-150) Cholesterol Level 254 MG/DL (< 200) H LDL Cholesterol 174 mg/dL (<100) H HDL Cholesterol 61 MG/DL (40-60) H Cholesterol/HDL Ratio 4.2 (3.3-4.4) Vitamin B12 Level 534 PG/ML (193-986) Folate 7.4 NG/ML (8.6-58.9) L Thyroid Stimulating Hormone (TSH) 181.923 uiU/mL (0.358-3.740) Height (Feet): 5 Height (Inches): 7.00 Weight (Pounds): 140 General Appearance: WD/WN, no apparent distress, alert Cardiovascular: normal rate Respiratory/Chest: normal breath sounds, no respiratory distress Abdominal Exam: normal bowel sounds, non tender, soft Extremities: normal range of motion, non-tender Lina Carpio NP Oct 17, 2017 16:10
[2017-10-17 18:42] LABS: APPEARANCE,URINE SLIGHTLY CLOUDY; BILIRUBIN, URINE NEGATIVE (NEGATIVE); COLOR,URINE PALE YELLOW; GLUCOSE, URINE (UA) NEGATIVE (NEGATIVE); KETONES,URINE NEGATIVE (NEGATIVE); LEUKOCYTE ESTERASE ,URINE 3+ (NEGATIVE); NITRITE,URINE POSITIVE (NEGATIVE); PH,URINE 6 (4.5-8.0); PROTEIN,URINE NEGATIVE (NEGATIVE); UROBILINOGEN,URINE NORMAL MG/DL (0.0-1.0)
[2017-10-17 20:00] VITALS: BP 116/70
[2017-10-17] MEDS: Metoprolol Succinate XL 100mg tab ORAL SCH (20:57)
[2017-10-18] VITALS: BP 116/70
[2017-10-18 04:00] VITALS: BP 113/71
[2017-10-18] MEDS: NovoLOG Insulin Flexpen SUBQ SCH ×4 (06:30→20:40)
[2017-10-18 08:00] VITALS: BP 120/73
[2017-10-18 08:15] LABS: BASOPHILS % (AUTO) 1.3 % (0.0-2.0); EOSINOPHILS % (AUTO) 2.8 % (0.0-3.0); HEMATOCRIT 35.8 % (37.0-47.0); HEMOGLOBIN 12.1 G/DL (12.0-16.0); LYMPHOCYTES % (AUTO) 34.6 % (20.0-45.0); MEAN CORPUSCULAR VOLUME 92 FL (80-99); MONOCYTES % (AUTO) 7.1 % (1.0-10.0); NEUTROPHILS % (AUTO) 54.2 % (45.0-75.0); PLATELET COUNT 216 K/UL (150-450); WHITE BLOOD COUNT 7.5 K/UL (4.8-10.8)
[2017-10-18 08:42] LABS: ANION GAP 10 mmol/L (5-15); BLOOD UREA NITROGEN 8 mg/dL (7-18); CALCIUM 8.3 MG/DL (8.5-10.1); CARBON DIOXIDE 26 MMOL/L (21-32); CHLORIDE 106 MMOL/L (98-107); CREATININE 0.7 MG/DL (0.55-1.30); POTASSIUM 3.8 MMOL/L (3.5-5.1); SODIUM 141 MMOL/L (136-145)
[2017-10-18] MEDS: Docusate 100mg cap ORAL SCH ×2 (08:43→17:20)
[2017-10-18] MEDS: Lactulose 10gm/15ml UDC ORAL SCH ×3 (08:43→17:20)
[2017-10-18] MEDS: Montelukast 10mg tablet ORAL SCH (08:43)
[2017-10-18] MEDS: Lisinopril 10mg tab ORAL SCH (08:43)
[2017-10-18] MEDS: Heparin 5000 units/ml inj SUBQ SCH ×2 (08:50→21:45)
--- NOTE | 2017-10-18 10:36 | GI Progress Note ---
Assessment/Plan Problems: (1) DM (diabetes mellitus) ICD Codes: E11.9 - Type 2 diabetes mellitus without complications SNOMED: 65725009 (2) Constipation ICD Codes: K59.00 - Constipation, unspecified SNOMED: 05373673 (3) Impacted stool in rectum ICD Codes: K56.41 - Fecal impaction SNOMED: 68816085 (4) Dysphagia ICD Codes: R13.10 - Dysphagia, unspecified SNOMED: 48217431, 188453989 Status: stable Status Narrative Discussed with Dr. Cardenas. Assessment/Plan CT AP reviewed >> stool impaction old GT site healed anemia work up reviewed >> folate deficiency okay for DC per GI standpoint on diet ppi bowel regime >> lactulose + colace + miralax PT/OT evaluation fu labs outpatient GI procedures The patient was seen and examined at bedside and all new and available data was reviewed in the patients chart. I agree with the above findings, impression and plan. (Patient seen earlier today. Signature stamp does not reflect patient encounter time.). - Chang Cardenas MD Subjective Gastrointestinal/Abdominal: Reports: no symptoms Objective Last 24 Hour Vital Signs Date Time Temp Pulse Resp B/P (MAP) Pulse Ox O2 Delivery O2 Flow Rate FiO2 10/18/17 08:43 120/73 10/18/17 08:42 63 120/73 10/18/17 08:00 97.8 63 19 120/73 96 Room Air 97.8 10/18/17 04:00 98.1 63 17 113/71 96 Room Air 98.1 10/18/17 00:00 97.9 68 16 116/70 96 Room Air 97.9 10/17/17 20:57 66 116/70 10/17/17 20:00 97.4 66 17 116/70 96 Room Air 97.4 10/17/17 16:00 98.6 70 18 117/69 96 Room Air 98.6 10/17/17 12:00 Room Air 10/17/17 11:59 98.1 69 18 106/67 97 98.1 Intake and Output 10/17/17 10/18/17 19:00 07:00 Intake Total 550 ml Output Total 940 ml 550 ml Balance -390 ml -550 ml Intake Oral 480 ml IV Total 70 ml Output Urine Total 940 ml 550 ml Laboratory Tests Test 10/17/17 17:30 10/18/17 07:19 Urine Color Pale yellow Urine Appearance Slightly cloudy Urine pH 6 (4.5-8.0) Urine Specific [place] 1.005 (1.005-1.035) Urine Protein Negative (NEGATIVE) Urine Glucose (UA) Negative (NEGATIVE) Urine Ketones Negative (NEGATIVE) Urine Occult Blood 3+ (NEGATIVE) H Urine Nitrite Positive (NEGATIVE) H Urine Bilirubin Negative (NEGATIVE) Urine Urobilinogen Normal MG/DL (0.0-1.0) Urine Leukocyte Esterase 3+ (NEGATIVE) H Urine RBC 2-4 /HPF (0 - 2) H Urine WBC 10-15 /HPF (0 - 2) H Urine Squamous Epithelial Cells Occasional /LPF Urine Bacteria Many /HPF (NONE) H White Blood Count 7.5 K/UL (4.8-10.8) Red Blood Count 3.90 M/UL (4.20-5.40) L Hemoglobin 12.1 G/DL (12.0-16.0) Hematocrit 35.8 % (37.0-47.0) L Mean Corpuscular Volume 92 FL (80-99) Mean Corpuscular Hemoglobin 31.1 PG (27.0-31.0) H Mean Corpuscular Hemoglobin Concent 33.9 G/DL (32.0-36.0) Red Cell Distribution Width 12.0 % (11.6-14.8) Platelet Count 216 K/UL (150-450) Mean Platelet Volume 7.3 FL (6.5-10.1) Neutrophils (%) (Auto) 54.2 % (45.0-75.0) Lymphocytes (%) (Auto) 34.6 % (20.0-45.0) Monocytes (%) (Auto) 7.1 % (1.0-10.0) Eosinophils (%) (Auto) 2.8 % (0.0-3.0) Basophils (%) (Auto) 1.3 % (0.0-2.0) Sodium Level 141 MMOL/L (136-145) Potassium Level 3.8 MMOL/L (3.5-5.1) Chloride Level 106 MMOL/L (98-107) Carbon Dioxide Level 26 MMOL/L (21-32) Anion Gap 10 mmol/L (5-15) Blood Urea Nitrogen 8 mg/dL (7-18) Creatinine 0.7 MG/DL (0.55-1.30) Estimat Glomerular Filtration Rate > 60 mL/min (>60) Glucose Level 97 MG/DL (74-106) Calcium Level 8.3 MG/DL (8.5-10.1) L Microbiology Date/Time Source Procedure Growth Status 10/17/17 17:30 Urine,Clean Catch Urine Culture - Preliminary Gram Negative Bacillus 1 Resulted Height (Feet): 5 Height (Inches): 7.00 Weight (Pounds): 135 General Appearance: WD/WN, no apparent distress, alert Cardiovascular: normal rate Respiratory/Chest: normal breath sounds, no respiratory distress Abdominal Exam: normal bowel sounds, non tender, soft Extremities: normal range of motion, non-tender Lina Carpio NP Oct 18, 2017 10:36
[2017-10-18 12:00] VITALS: BP 119/81
--- NOTE | 2017-10-18 12:25 | Pulmonology Progress Note ---
Assessment/Plan Problems: (1) History of asthma (2) Impacted stool in rectum (3) Hypertension (4) Urinary obstruction, unspecified (5) DM (diabetes mellitus) Assessment/Plan all reviewed awake, comfortable eating well symptomatic treatment respiratory treatment prn titrate fio2 to sat of 92% sliding scale dc planning Subjective ROS Limited/Unobtainable: No Constitutional: Reports: no symptoms HEENT: Repors: no symptoms Allergies: Coded Allergies: No Known Allergies (Unverified , 12/03/13) Objective Last 24 Hour Vital Signs Date Time Temp Pulse Resp B/P (MAP) Pulse Ox O2 Delivery O2 Flow Rate FiO2 10/18/17 08:43 120/73 10/18/17 08:42 63 120/73 10/18/17 08:00 97.8 63 19 120/73 96 Room Air 97.8 10/18/17 04:00 98.1 63 17 113/71 96 Room Air 98.1 10/18/17 00:00 97.9 68 16 116/70 96 Room Air 97.9 10/17/17 20:57 66 116/70 10/17/17 20:00 97.4 66 17 116/70 96 Room Air 97.4 10/17/17 16:00 98.6 70 18 117/69 96 Room Air 98.6 Intake and Output 10/17/17 10/18/17 19:00 07:00 Intake Total 550 ml Output Total 940 ml 550 ml Balance -390 ml -550 ml Intake Oral 480 ml IV Total 70 ml Output Urine Total 940 ml 550 ml General Appearance: WD/WN HEENT: normocephalic, atraumatic Respiratory/Chest: chest wall non-tender, lungs clear Cardiovascular: normal peripheral pulses, normal rate Abdomen: normal bowel sounds, soft, non tender Genitourinary: normal external genitalia Extremities: no clubbing Skin: no rash Microbiology Date/Time Source Procedure Growth Status 10/17/17 17:30 Urine,Clean Catch Urine Culture - Preliminary Gram Negative Bacillus 1 Resulted Laboratory Tests 10/17/17 17:30: Urine Color Pale yellow, Urine Appearance Slightly cloudy, Urine pH 6, Urine Specific [place] 1.005, Urine Protein Negative, Urine Glucose (UA) Negative, Urine Ketones Negative, Urine Occult Blood 3+H, Urine Nitrite PositiveH, Urine Bilirubin Negative, Urine Urobilinogen Normal, Urine Leukocyte Esterase 3+H, Urine RBC 2-4H, Urine WBC 10-15H, Urine Squamous Epithelial Cells Occasional, Urine Bacteria ManyH 10/18/17 07:19: White Blood Count 7.5, Red Blood Count 3.90L, Hemoglobin 12.1, Hematocrit 35.8L , Mean Corpuscular Volume 92, Mean Corpuscular Hemoglobin 31.1H, Mean Corpuscular Hemoglobin Concent 33.9, Red Cell Distribution Width 12.0, Platelet Count 216, Mean Platelet Volume 7.3, Neutrophils (%) (Auto) 54.2, Lymphocytes (% ) (Auto) 34.6, Monocytes (%) (Auto) 7.1, Eosinophils (%) (Auto) 2.8, Basophils ( %) (Auto) 1.3, Sodium Level 141, Potassium Level 3.8, Chloride Level 106, Carbon Dioxide Level 26, Anion Gap 10, Blood Urea Nitrogen 8, Creatinine 0.7, Estimat Glomerular Filtration Rate > 60, Glucose Level 97, Calcium Level 8.3L Current Medications Medications (Trade) Dose Ordered Sig/Aleksandr Route PRN Reason Start Time Stop Time Status Last Admin Dose Admin Amlodipine Besylate (Norvasc) 2.5 mg DAILY ORAL 10/18/17 09:00 11/14/17 08:59 10/18/17 08:42 Bisacodyl (Dulcolax) 10 mg BID PRN RECTAL Constipation 10/15/17 06:15 11/14/17 06:14 Dextrose (Dextrose 50%) 25 ml STAT PRN IV Hypoglycemia 10/15/17 06:15 11/14/17 06:14 Dextrose (Dextrose 50%) 50 ml STAT PRN IV Hypoglycemia 10/15/17 06:15 11/14/17 06:14 Docusate Sodium (Colace) 100 mg TWICE A DAY ORAL 10/15/17 09:00 11/14/17 08:59 10/18/17 08:43 Folic Acid (Folate) 1 mg DAILY ORAL 10/18/17 09:00 11/17/17 08:59 10/18/17 08:42 Heparin Sodium (Porcine) (Heparin 5000 units/ml) 5,000 units EVERY 12 HOURS SUBQ 10/15/17 09:00 11/14/17 08:59 10/18/17 08:50 Insulin Aspart (NovoLOG) BEFORE MEALS AND HS SUBQ 10/15/17 06:30 11/14/17 06:29 10/17/17 21:00 Lactulose (Cephulac) 10 gm THREE TIMES A DAY ORAL 10/15/17 13:00 11/14/17 12:59 10/18/17 08:43 Lisinopril (Zestril) 10 mg DAILY ORAL 10/18/17 09:00 11/14/17 08:59 10/18/17 08:43 Metoprolol Succinate (Toprol XL) 100 mg QHS ORAL 10/15/17 21:00 11/14/17 20:59 10/17/17 20:57 Montelukast Sodium (Singulair) 10 mg DAILY ORAL 10/15/17 09:00 11/14/17 08:59 10/18/17 08:43 Non-Formulary Medication (Non-Formulary Med) 1 ea DAILY ORAL 10/15/17 09:00 11/14/17 08:59 UNV Potassium Chloride (K-Dur) 40 meq DAILY ORAL 10/18/17 09:00 11/17/17 08:59 10/18/17 08:42 Sodium Phosphate (Fleet's Sodium Phosl Enema) 133 ml DAILY PRN RECTAL Constipation 10/15/17 06:15 11/14/17 06:14 10/15/17 12:11 Bridget Macias MD Oct 18, 2017 12:25
--- NOTE | 2017-10-18 14:37 | General Progress Note ---
Assessment/Plan Problem List: (1) Alteration consciousness ICD Codes: R40.4 - Transient alteration of awareness SNOMED: 6232820 (2) UTI (lower urinary tract infection) ICD Codes: N39.0 - UTI (lower urinary tract infection) SNOMED: 9728359 (3) Hypothyroid ICD Codes: E03.9 - Hypothyroidism, unspecified SNOMED: 01063460 (4) DM (diabetes mellitus) ICD Codes: E11.9 - Type 2 diabetes mellitus without complications SNOMED: 83644929 (5) Hypertension ICD Codes: I10 - Essential (primary) hypertension SNOMED: 36089225 (6) Impacted stool in rectum ICD Codes: K56.41 - Fecal impaction SNOMED: 59297815 (7) Urinary obstruction, unspecified ICD Codes: N13.9 - Obstructive and reflux uropathy, unspecified SNOMED: 0683515 (8) Constipation ICD Codes: K59.00 - Constipation, unspecified SNOMED: 88675222 Status: stable, progressing Assessment/Plan ot pt diet abx bp bs control laxitives cbc bmp am dc w hh if clear Subjective Constitutional: Reports: weakness Allergies: Coded Allergies: No Known Allergies (Unverified , 12/03/13) All Systems: reviewed and negative except above Subjective sleepy calm Objective Last 24 Hour Vital Signs Date Time Temp Pulse Resp B/P (MAP) Pulse Ox O2 Delivery O2 Flow Rate FiO2 10/18/17 12:00 97.6 68 19 119/81 98 Room Air 97.6 10/18/17 08:43 120/73 10/18/17 08:42 63 120/73 10/18/17 08:00 97.8 63 19 120/73 96 Room Air 97.8 10/18/17 04:00 98.1 63 17 113/71 96 Room Air 98.1 10/18/17 00:00 97.9 68 16 116/70 96 Room Air 97.9 10/17/17 20:57 66 116/70 10/17/17 20:00 97.4 66 17 116/70 96 Room Air 97.4 10/17/17 16:00 98.6 70 18 117/69 96 Room Air 98.6 Intake and Output 10/17/17 10/18/17 19:00 07:00 Intake Total 550 ml Output Total 940 ml 550 ml Balance -390 ml -550 ml Intake Oral 480 ml IV Total 70 ml Output Urine Total 940 ml 550 ml Laboratory Tests 10/17/17 17:30: Urine Color Pale yellow, Urine Appearance Slightly cloudy, Urine pH 6, Urine Specific [place] 1.005, Urine Protein Negative, Urine Glucose (UA) Negative, Urine Ketones Negative, Urine Occult Blood 3+H, Urine Nitrite PositiveH, Urine Bilirubin Negative, Urine Urobilinogen Normal, Urine Leukocyte Esterase 3+H, Urine RBC 2-4H, Urine WBC 10-15H, Urine Squamous Epithelial Cells Occasional, Urine Bacteria ManyH 10/18/17 07:19: White Blood Count 7.5, Red Blood Count 3.90L, Hemoglobin 12.1, Hematocrit 35.8L , Mean Corpuscular Volume 92, Mean Corpuscular Hemoglobin 31.1H, Mean Corpuscular Hemoglobin Concent 33.9, Red Cell Distribution Width 12.0, Platelet Count 216, Mean Platelet Volume 7.3, Neutrophils (%) (Auto) 54.2, Lymphocytes (% ) (Auto) 34.6, Monocytes (%) (Auto) 7.1, Eosinophils (%) (Auto) 2.8, Basophils ( %) (Auto) 1.3, Sodium Level 141, Potassium Level 3.8, Chloride Level 106, Carbon Dioxide Level 26, Anion Gap 10, Blood Urea Nitrogen 8, Creatinine 0.7, Estimat Glomerular Filtration Rate > 60, Glucose Level 97, Calcium Level 8.3L Height (Feet): 5 Height (Inches): 7.00 Weight (Pounds): 135 General Appearance: lethargic EENT: normal ENT inspection Neck: non-tender Cardiovascular: normal peripheral pulses, normal rate, regular rhythm Respiratory/Chest: chest wall non-tender, lungs clear, normal breath sounds Abdomen: normal bowel sounds, non tender, soft Extremities: normal inspection Edema: no edema noted Arm (L), no edema noted Arm (R), no edema noted Leg (L), no edema noted Leg (R), no edema noted Pedal (L), no edema noted Pedal (R), no edema noted Generalized Neurologic: motor weakness Skin: normal pigmentation, warm/dry Edgard Wilburn DO Oct 18, 2017 14:37
[2017-10-18 16:00] VITALS: BP 128/85
--- NOTE | 2017-10-18 16:32 | Nephrology Progress Note ---
Assessment/Plan Problem List: (1) Hypothyroid Assessment: severe (2) Hypokalemia (3) Impacted stool in rectum (4) Urinary obstruction, unspecified Assessment Severe HYPOTHYROIDISM- HypoKalemia Dehydration HTN mild anemia Others: 1) History of asthma (2) Impacted stool in rectum (3) Hypertension (4) Urinary obstruction, unspecified (5) DM (diabetes mellitus) Plan PO KCL DC IV adjust BP meds Anemia alvarado IV synthroid Subjective ROS Limited/Unobtainable: No Constitutional: Reports: malaise Objective Objective Last 24 Hour Vital Signs Date Time Temp Pulse Resp B/P (MAP) Pulse Ox O2 Delivery O2 Flow Rate FiO2 10/18/17 12:00 97.6 68 19 119/81 98 Room Air 97.6 10/18/17 08:43 120/73 10/18/17 08:42 63 120/73 10/18/17 08:00 97.8 63 19 120/73 96 Room Air 97.8 10/18/17 04:00 98.1 63 17 113/71 96 Room Air 98.1 10/18/17 00:00 97.9 68 16 116/70 96 Room Air 97.9 10/17/17 20:57 66 116/70 10/17/17 20:00 97.4 66 17 116/70 96 Room Air 97.4 Intake and Output 10/17/17 10/18/17 19:00 07:00 Intake Total 550 ml Output Total 940 ml 550 ml Balance -390 ml -550 ml Intake Oral 480 ml IV Total 70 ml Output Urine Total 940 ml 550 ml Laboratory Tests 10/17/17 17:30: Urine Color Pale yellow, Urine Appearance Slightly cloudy, Urine pH 6, Urine Specific [place] 1.005, Urine Protein Negative, Urine Glucose (UA) Negative, Urine Ketones Negative, Urine Occult Blood 3+H, Urine Nitrite PositiveH, Urine Bilirubin Negative, Urine Urobilinogen Normal, Urine Leukocyte Esterase 3+H, Urine RBC 2-4H, Urine WBC 10-15H, Urine Squamous Epithelial Cells Occasional, Urine Bacteria ManyH 10/18/17 07:19: White Blood Count 7.5, Red Blood Count 3.90L, Hemoglobin 12.1, Hematocrit 35.8L , Mean Corpuscular Volume 92, Mean Corpuscular Hemoglobin 31.1H, Mean Corpuscular Hemoglobin Concent 33.9, Red Cell Distribution Width 12.0, Platelet Count 216, Mean Platelet Volume 7.3, Neutrophils (%) (Auto) 54.2, Lymphocytes (% ) (Auto) 34.6, Monocytes (%) (Auto) 7.1, Eosinophils (%) (Auto) 2.8, Basophils ( %) (Auto) 1.3, Sodium Level 141, Potassium Level 3.8, Chloride Level 106, Carbon Dioxide Level 26, Anion Gap 10, Blood Urea Nitrogen 8, Creatinine 0.7, Estimat Glomerular Filtration Rate > 60, Glucose Level 97, Calcium Level 8.3L Height (Feet): 5 Height (Inches): 7.00 Weight (Pounds): 135 General Appearance: no apparent distress Respiratory/Chest: lungs clear Abdomen: soft DENISHA MCDONNELL Oct 18, 2017 16:32
[2017-10-18 20:15] VITALS: BP 120/74
[2017-10-18] MEDS: Metoprolol Succinate XL 100mg tab ORAL SCH ×2 (21:00→21:43)
[2017-10-19 00:20] VITALS: BP 123/75
[2017-10-19 04:10] VITALS: BP 101/65
[2017-10-19] MEDS: NovoLOG Insulin Flexpen SUBQ SCH ×4 (06:30→20:28)
[2017-10-19 07:09] LABS: BASOPHILS % (AUTO) 0.8 % (0.0-2.0); EOSINOPHILS % (AUTO) 1.9 % (0.0-3.0); HEMATOCRIT 38.3 % (37.0-47.0); HEMOGLOBIN 13.5 G/DL (12.0-16.0); LYMPHOCYTES % (AUTO) 28.3 % (20.0-45.0); MEAN CORPUSCULAR VOLUME 92 FL (80-99); NEUTROPHILS % (AUTO) 62.9 % (45.0-75.0); PLATELET COUNT 227 K/UL (150-450); RED BLOOD COUNT 4.15 M/UL (4.20-5.40)
[2017-10-19 07:25] LABS: ANION GAP 9 mmol/L (5-15); BLOOD UREA NITROGEN 8 mg/dL (7-18); CALCIUM 8.8 MG/DL (8.5-10.1); CARBON DIOXIDE 26 MMOL/L (21-32); CHLORIDE 104 MMOL/L (98-107); CREATININE 0.7 MG/DL (0.55-1.30); POTASSIUM 4.1 MMOL/L (3.5-5.1); SODIUM 139 MMOL/L (136-145)
[2017-10-19 08:00] VITALS: BP 120/78
[2017-10-19] MEDS: Lactulose 10gm/15ml UDC ORAL SCH ×3 (09:39→17:46)
[2017-10-19] MEDS: Docusate 100mg cap ORAL SCH ×2 (09:39→17:46)
[2017-10-19] MEDS: Montelukast 10mg tablet ORAL SCH (09:39)
[2017-10-19] MEDS: Lisinopril 10mg tab ORAL SCH (09:42)
[2017-10-19] MEDS: Heparin 5000 units/ml inj SUBQ SCH ×2 (09:45→20:27)
--- NOTE | 2017-10-19 11:33 | GI Progress Note ---
Assessment/Plan Problems: (1) DM (diabetes mellitus) ICD Codes: E11.9 - Type 2 diabetes mellitus without complications SNOMED: 11434648 (2) Constipation ICD Codes: K59.00 - Constipation, unspecified SNOMED: 55714322 (3) Impacted stool in rectum ICD Codes: K56.41 - Fecal impaction SNOMED: 24769440 (4) Dysphagia ICD Codes: R13.10 - Dysphagia, unspecified SNOMED: 79058589, 337045996 Status: stable Status Narrative Discussed with Dr. Cardenas. Assessment/Plan CT AP reviewed >> stool impaction old GT site healed anemia work up reviewed >> folate deficiency okay for DC per GI standpoint on diet ppi bowel regime >> lactulose + colace + miralax PT/OT evaluation fu labs outpatient GI procedures The patient was seen and examined at bedside and all new and available data was reviewed in the patients chart. I agree with the above findings, impression and plan. (Patient seen earlier today. Signature stamp does not reflect patient encounter time.). - Chang Cardenas MD Subjective Gastrointestinal/Abdominal: Reports: no symptoms Objective Last 24 Hour Vital Signs Date Time Temp Pulse Resp B/P (MAP) Pulse Ox O2 Delivery O2 Flow Rate FiO2 10/19/17 09:43 66 120/78 10/19/17 09:42 120/78 10/19/17 08:00 98.1 66 18 120/78 98 Room Air 98.1 10/19/17 04:10 97.8 62 16 101/65 95 97.8 10/19/17 00:20 98.1 69 17 123/75 96 98.1 10/18/17 21:00 70 120/74 10/18/17 20:15 98.2 70 16 120/74 96 98.2 10/18/17 16:00 97.8 71 20 128/85 96 Room Air 97.8 10/18/17 12:00 97.6 68 19 119/81 98 Room Air 97.6 Intake and Output 10/18/17 10/19/17 19:00 07:00 Intake Total 580 ml 120 ml Output Total 300 ml 850 ml Balance 280 ml -730 ml Intake Oral 580 ml 120 ml Output Urine Total 300 ml 850 ml # Voids 2 Laboratory Tests Test 10/19/17 06:05 White Blood Count 10.0 K/UL (4.8-10.8) Red Blood Count 4.15 M/UL (4.20-5.40) L Hemoglobin 13.5 G/DL (12.0-16.0) Hematocrit 38.3 % (37.0-47.0) Mean Corpuscular Volume 92 FL (80-99) Mean Corpuscular Hemoglobin 32.6 PG (27.0-31.0) H Mean Corpuscular Hemoglobin Concent 35.4 G/DL (32.0-36.0) Red Cell Distribution Width 12.0 % (11.6-14.8) Platelet Count 227 K/UL (150-450) Mean Platelet Volume 6.7 FL (6.5-10.1) Neutrophils (%) (Auto) 62.9 % (45.0-75.0) Lymphocytes (%) (Auto) 28.3 % (20.0-45.0) Monocytes (%) (Auto) 6.0 % (1.0-10.0) Eosinophils (%) (Auto) 1.9 % (0.0-3.0) Basophils (%) (Auto) 0.8 % (0.0-2.0) Sodium Level 139 MMOL/L (136-145) Potassium Level 4.1 MMOL/L (3.5-5.1) Chloride Level 104 MMOL/L (98-107) Carbon Dioxide Level 26 MMOL/L (21-32) Anion Gap 9 mmol/L (5-15) Blood Urea Nitrogen 8 mg/dL (7-18) Creatinine 0.7 MG/DL (0.55-1.30) Estimat Glomerular Filtration Rate > 60 mL/min (>60) Glucose Level 81 MG/DL (74-106) Calcium Level 8.8 MG/DL (8.5-10.1) Height (Feet): 5 Height (Inches): 7.00 Weight (Pounds): 135 General Appearance: WD/WN, no apparent distress, alert Cardiovascular: normal rate Respiratory/Chest: normal breath sounds, no respiratory distress Abdominal Exam: normal bowel sounds, non tender, soft Extremities: normal range of motion, non-tender Lina Carpio NP Oct 19, 2017 11:33
[2017-10-19 12:00] VITALS: BP 121/75
--- NOTE | 2017-10-19 12:01 | Nephrology Progress Note ---
Assessment/Plan Problem List: (1) Hypothyroid Assessment: severe (2) Hypokalemia (3) Impacted stool in rectum (4) Urinary obstruction, unspecified Assessment Severe HYPOTHYROIDISM- HypoKalemia Dehydration HTN mild anemia UTI Others: 1) History of asthma (2) Impacted stool in rectum (3) Hypertension (4) Urinary obstruction, unspecified (5) DM (diabetes mellitus) Plan DC PO KCL IV Rocephin for UTI adjust BP meds, DC Norvasc Anemia alvarado IV synthroid Subjective ROS Limited/Unobtainable: No Constitutional: Reports: malaise Objective Objective Last 24 Hour Vital Signs Date Time Temp Pulse Resp B/P (MAP) Pulse Ox O2 Delivery O2 Flow Rate FiO2 10/19/17 09:43 66 120/78 10/19/17 09:42 120/78 10/19/17 08:00 98.1 66 18 120/78 98 Room Air 98.1 10/19/17 04:10 97.8 62 16 101/65 95 97.8 10/19/17 00:20 98.1 69 17 123/75 96 98.1 10/18/17 21:00 70 120/74 10/18/17 20:15 98.2 70 16 120/74 96 98.2 10/18/17 16:00 97.8 71 20 128/85 96 Room Air 97.8 Intake and Output 10/18/17 10/19/17 19:00 07:00 Intake Total 580 ml 120 ml Output Total 300 ml 850 ml Balance 280 ml -730 ml Intake Oral 580 ml 120 ml Output Urine Total 300 ml 850 ml # Voids 2 Laboratory Tests 10/19/17 06:05: White Blood Count 10.0, Red Blood Count 4.15L, Hemoglobin 13.5, Hematocrit 38.3 , Mean Corpuscular Volume 92, Mean Corpuscular Hemoglobin 32.6H, Mean Corpuscular Hemoglobin Concent 35.4, Red Cell Distribution Width 12.0, Platelet Count 227, Mean Platelet Volume 6.7, Neutrophils (%) (Auto) 62.9, Lymphocytes (% ) (Auto) 28.3, Monocytes (%) (Auto) 6.0, Eosinophils (%) (Auto) 1.9, Basophils ( %) (Auto) 0.8, Sodium Level 139, Potassium Level 4.1, Chloride Level 104, Carbon Dioxide Level 26, Anion Gap 9, Blood Urea Nitrogen 8, Creatinine 0.7, Estimat Glomerular Filtration Rate > 60, Glucose Level 81, Calcium Level 8.8 Height (Feet): 5 Height (Inches): 7.00 Weight (Pounds): 135 General Appearance: no apparent distress Objective no change DENISHA MCDONNELL Oct 19, 2017 12:01
--- NOTE | 2017-10-19 12:13 | Pulmonology Progress Note ---
Assessment/Plan Problems: (1) History of asthma (2) Impacted stool in rectum (3) Hypertension (4) Urinary obstruction, unspecified (5) DM (diabetes mellitus) Assessment/Plan all reviewed awake, comfortable eating well symptomatic treatment respiratory treatment prn titrate fio2 to sat of 92% sliding scale dc planning Subjective ROS Limited/Unobtainable: No Constitutional: Reports: no symptoms HEENT: Repors: no symptoms Respiratory: Reports: no symptoms Allergies: Coded Allergies: No Known Allergies (Unverified , 12/03/13) Objective Last 24 Hour Vital Signs Date Time Temp Pulse Resp B/P (MAP) Pulse Ox O2 Delivery O2 Flow Rate FiO2 10/19/17 09:43 66 120/78 10/19/17 09:42 120/78 10/19/17 08:00 98.1 66 18 120/78 98 Room Air 98.1 10/19/17 04:10 97.8 62 16 101/65 95 97.8 10/19/17 00:20 98.1 69 17 123/75 96 98.1 10/18/17 21:00 70 120/74 10/18/17 20:15 98.2 70 16 120/74 96 98.2 10/18/17 16:00 97.8 71 20 128/85 96 Room Air 97.8 Intake and Output 10/18/17 10/19/17 19:00 07:00 Intake Total 580 ml 120 ml Output Total 300 ml 850 ml Balance 280 ml -730 ml Intake Oral 580 ml 120 ml Output Urine Total 300 ml 850 ml # Voids 2 General Appearance: WD/WN HEENT: normocephalic, anicteric Respiratory/Chest: chest wall non-tender, lungs clear Breasts: no masses Cardiovascular: normal peripheral pulses Abdomen: normal bowel sounds, soft, non tender Extremities: no clubbing Skin: no rash Microbiology Date/Time Source Procedure Growth Status 10/17/17 17:30 Urine,Clean Catch Urine Culture - Final Escherichia Coli Complete Laboratory Tests 10/19/17 06:05: White Blood Count 10.0, Red Blood Count 4.15L, Hemoglobin 13.5, Hematocrit 38.3 , Mean Corpuscular Volume 92, Mean Corpuscular Hemoglobin 32.6H, Mean Corpuscular Hemoglobin Concent 35.4, Red Cell Distribution Width 12.0, Platelet Count 227, Mean Platelet Volume 6.7, Neutrophils (%) (Auto) 62.9, Lymphocytes (% ) (Auto) 28.3, Monocytes (%) (Auto) 6.0, Eosinophils (%) (Auto) 1.9, Basophils ( %) (Auto) 0.8, Sodium Level 139, Potassium Level 4.1, Chloride Level 104, Carbon Dioxide Level 26, Anion Gap 9, Blood Urea Nitrogen 8, Creatinine 0.7, Estimat Glomerular Filtration Rate > 60, Glucose Level 81, Calcium Level 8.8 Current Medications Medications (Trade) Dose Ordered Sig/Aleksandr Route PRN Reason Start Time Stop Time Status Last Admin Dose Admin Bisacodyl (Dulcolax) 10 mg BID PRN RECTAL Constipation 10/15/17 06:15 11/14/17 06:14 Ceftriaxone Sodium 1 gm/ Dextrose 110 ml @ 220 mls/hr Q24H IVPB 10/19/17 13:00 10/26/17 12:59 Dextrose (Dextrose 50%) 25 ml STAT PRN IV Hypoglycemia 10/15/17 06:15 11/14/17 06:14 Dextrose (Dextrose 50%) 50 ml STAT PRN IV Hypoglycemia 10/15/17 06:15 11/14/17 06:14 Docusate Sodium (Colace) 100 mg TWICE A DAY ORAL 10/15/17 09:00 11/14/17 08:59 10/19/17 09:39 Folic Acid (Folate) 2 mg DAILY ORAL 10/20/17 09:00 11/17/17 08:59 Heparin Sodium (Porcine) (Heparin 5000 units/ml) 5,000 units EVERY 12 HOURS SUBQ 10/15/17 09:00 11/14/17 08:59 10/19/17 09:45 Insulin Aspart (NovoLOG) BEFORE MEALS AND HS SUBQ 10/15/17 06:30 11/14/17 06:29 10/18/17 16:56 Lactulose (Cephulac) 10 gm THREE TIMES A DAY ORAL 10/15/17 13:00 11/14/17 12:59 10/19/17 09:39 Levothyroxine Sodium (Synthroid) 50 mcg DAILY IV 10/18/17 16:30 11/17/17 16:29 10/19/17 09:40 Lisinopril (Zestril) 10 mg DAILY ORAL 10/20/17 09:00 11/14/17 08:59 Metoprolol Succinate (Toprol XL) 100 mg QHS ORAL 10/15/17 21:00 11/14/17 20:59 10/17/17 20:57 Montelukast Sodium (Singulair) 10 mg DAILY ORAL 10/15/17 09:00 11/14/17 08:59 10/19/17 09:39 Non-Formulary Medication (Non-Formulary Med) 1 ea DAILY ORAL 10/15/17 09:00 11/14/17 08:59 UNV Sodium Phosphate (Fleet's Sodium Phosl Enema) 133 ml DAILY PRN RECTAL Constipation 10/15/17 06:15 11/14/17 06:14 10/15/17 12:11 Bridget Macias MD Oct 19, 2017 12:13
[2017-10-19] MEDS ORDERED: cefTRIAXone 1 GM in D5W 110 ML IVPB SCH (13:00)
--- NOTE | 2017-10-19 14:23 | General Progress Note ---
Assessment/Plan Problem List: (1) Alteration consciousness ICD Codes: R40.4 - Transient alteration of awareness SNOMED: 3642600 (2) UTI (lower urinary tract infection) ICD Codes: N39.0 - UTI (lower urinary tract infection) SNOMED: 7037204 (3) Hypothyroid ICD Codes: E03.9 - Hypothyroidism, unspecified SNOMED: 31396758 (4) DM (diabetes mellitus) ICD Codes: E11.9 - Type 2 diabetes mellitus without complications SNOMED: 00411718 (5) Hypertension ICD Codes: I10 - Essential (primary) hypertension SNOMED: 10787707 (6) Impacted stool in rectum ICD Codes: K56.41 - Fecal impaction SNOMED: 69444332 (7) Urinary obstruction, unspecified ICD Codes: N13.9 - Obstructive and reflux uropathy, unspecified SNOMED: 5574893 (8) Constipation ICD Codes: K59.00 - Constipation, unspecified SNOMED: 40586280 Status: stable, progressing Assessment/Plan ot pt diet abx bp bs control laxitives cbc bmp am dc w hh if clear Subjective Allergies: Coded Allergies: No Known Allergies (Unverified , 12/03/13) All Systems: reviewed and negative except above Subjective sleepy calm Objective Last 24 Hour Vital Signs Date Time Temp Pulse Resp B/P (MAP) Pulse Ox O2 Delivery O2 Flow Rate FiO2 10/19/17 12:00 97.8 85 18 121/75 95 Room Air 97.8 10/19/17 09:43 66 120/78 10/19/17 09:42 120/78 10/19/17 08:00 98.1 66 18 120/78 98 Room Air 98.1 10/19/17 04:10 97.8 62 16 101/65 95 97.8 10/19/17 00:20 98.1 69 17 123/75 96 98.1 10/18/17 21:00 70 120/74 10/18/17 20:15 98.2 70 16 120/74 96 98.2 10/18/17 16:00 97.8 71 20 128/85 96 Room Air 97.8 Intake and Output 10/18/17 10/19/17 19:00 07:00 Intake Total 580 ml 120 ml Output Total 300 ml 850 ml Balance 280 ml -730 ml Intake Oral 580 ml 120 ml Output Urine Total 300 ml 850 ml # Voids 2 Laboratory Tests 10/19/17 06:05: White Blood Count 10.0, Red Blood Count 4.15L, Hemoglobin 13.5, Hematocrit 38.3 , Mean Corpuscular Volume 92, Mean Corpuscular Hemoglobin 32.6H, Mean Corpuscular Hemoglobin Concent 35.4, Red Cell Distribution Width 12.0, Platelet Count 227, Mean Platelet Volume 6.7, Neutrophils (%) (Auto) 62.9, Lymphocytes (% ) (Auto) 28.3, Monocytes (%) (Auto) 6.0, Eosinophils (%) (Auto) 1.9, Basophils ( %) (Auto) 0.8, Sodium Level 139, Potassium Level 4.1, Chloride Level 104, Carbon Dioxide Level 26, Anion Gap 9, Blood Urea Nitrogen 8, Creatinine 0.7, Estimat Glomerular Filtration Rate > 60, Glucose Level 81, Calcium Level 8.8 Height (Feet): 5 Height (Inches): 7.00 Weight (Pounds): 135 General Appearance: lethargic EENT: normal ENT inspection Neck: normal alignment Cardiovascular: normal peripheral pulses, normal rate, regular rhythm Respiratory/Chest: chest wall non-tender, lungs clear, normal breath sounds Abdomen: normal bowel sounds, non tender, soft Extremities: normal inspection Edema: no edema noted Arm (L), no edema noted Arm (R), no edema noted Leg (L), no edema noted Leg (R), no edema noted Pedal (L), no edema noted Pedal (R), no edema noted Generalized Neurologic: motor weakness Skin: normal pigmentation, warm/dry Objective whitney in place Edgard Wilburn DO Oct 19, 2017 14:23
[2017-10-19 16:00] VITALS: BP 120/70
--- NOTE | 2017-10-19 17:12 | Consultation ---
History of Present Illness General Date patient seen: Oct 19, 2017 Chief Complaint: Abdominal Pain Referring physician: Cosmo Reason for Consultation: retention Present Illness HPI 57 yo female with retention. Bed bound due to multiple co-morbidities. Patient had whitney placed on admission and then had voiding trial yesterday that she failed. High residual. Apparently just uses a diaper at home. Recommended whitney be replaced Allergies: Coded Allergies: No Known Allergies (Unverified , 12/03/13) Medication History Scheduled Amlodipine Besylate* (Amlodipine Besylate*), 5 MG ORAL DAILY, (Reported) Insulin Detemir (Levemir), 12 SUBQ BEDTIME, (Reported) Insulin Lispro (Humalog), 0 SUBQ SLIDING SCALE, (Reported) Linaclotide (Linzess), 145 MCG PO DAILY, (Reported) Metoprolol Succinate* (Metoprolol Succinate*), 100 MG ORAL HS, (Reported) Montelukast Sodium* (Montelukast Sodium*), 10 MG ORAL DAILY, (Reported) Quinapril Hcl (Quinapril Hcl), 20 MG PO DA, (Reported) Patient History Limited by: medical condition History Provided By: Patient, Medical Record Healthcare decision maker Resuscitation status Full Code Advanced Directive on File No Past Medical/Surgical History Past Medical/Surgical History: (1) UTI (lower urinary tract infection) (2) Constipation Review of Systems Constitutional: Denies: no symptoms, see HPI, chills, sweats, fever, malaise, weakness, other Hematologic/Lymphatic: Denies: no symptoms, see HPI, anemia, blood clots, easy bleeding, easy bruising, swollen glands, diathesis, other All Other Systems: negative except mentioned in HPI Physical Exam General Appearance: no apparent distress HEENT: atraumatic Neck: non-tender Respiratory/Chest: chest wall non-tender, lungs clear Breasts: no masses Cardiovascular/Chest: normal rate, regular rhythm Abdomen: non tender, soft Genitourinary/Rectal: whitney Extremities: normal range of motion, non-tender Skin Exam: warm/dry Neurologic: alert, oriented x 3 Last 24 Hour Vital Signs Date Time Temp Pulse Resp B/P (MAP) Pulse Ox O2 Delivery O2 Flow Rate FiO2 10/19/17 16:00 98.0 70 17 120/70 96 Room Air 98.0 10/19/17 12:00 97.8 85 18 121/75 95 Room Air 97.8 10/19/17 09:43 66 120/78 10/19/17 09:42 120/78 10/19/17 08:00 98.1 66 18 120/78 98 Room Air 98.1 10/19/17 04:10 97.8 62 16 101/65 95 97.8 10/19/17 00:20 98.1 69 17 123/75 96 98.1 10/18/17 21:00 70 120/74 10/18/17 20:15 98.2 70 16 120/74 96 98.2 Intake and Output 10/18/17 10/19/17 19:00 07:00 Intake Total 580 ml 120 ml Output Total 300 ml 850 ml Balance 280 ml -730 ml Intake Oral 580 ml 120 ml Output Urine Total 300 ml 850 ml # Voids 2 Laboratory Tests Test 10/19/17 06:05 White Blood Count 10.0 K/UL (4.8-10.8) Red Blood Count 4.15 M/UL (4.20-5.40) L Hemoglobin 13.5 G/DL (12.0-16.0) Hematocrit 38.3 % (37.0-47.0) Mean Corpuscular Volume 92 FL (80-99) Mean Corpuscular Hemoglobin 32.6 PG (27.0-31.0) H Mean Corpuscular Hemoglobin Concent 35.4 G/DL (32.0-36.0) Red Cell Distribution Width 12.0 % (11.6-14.8) Platelet Count 227 K/UL (150-450) Mean Platelet Volume 6.7 FL (6.5-10.1) Neutrophils (%) (Auto) 62.9 % (45.0-75.0) Lymphocytes (%) (Auto) 28.3 % (20.0-45.0) Monocytes (%) (Auto) 6.0 % (1.0-10.0) Eosinophils (%) (Auto) 1.9 % (0.0-3.0) Basophils (%) (Auto) 0.8 % (0.0-2.0) Sodium Level 139 MMOL/L (136-145) Potassium Level 4.1 MMOL/L (3.5-5.1) Chloride Level 104 MMOL/L (98-107) Carbon Dioxide Level 26 MMOL/L (21-32) Anion Gap 9 mmol/L (5-15) Blood Urea Nitrogen 8 mg/dL (7-18) Creatinine 0.7 MG/DL (0.55-1.30) Estimat Glomerular Filtration Rate > 60 mL/min (>60) Glucose Level 81 MG/DL (74-106) Calcium Level 8.8 MG/DL (8.5-10.1) Height (Feet): 5 Height (Inches): 7.00 Weight (Pounds): 135 Medications Current Medications Medications (Trade) Dose Ordered Sig/Aleksandr Route PRN Reason Start Time Stop Time Status Last Admin Dose Admin Bisacodyl (Dulcolax) 10 mg BID PRN RECTAL Constipation 10/15/17 06:15 11/14/17 06:14 Ceftriaxone Sodium 1 gm/ Dextrose 110 ml @ 220 mls/hr Q24H IVPB 10/19/17 13:00 10/26/17 12:59 10/19/17 13:57 Dextrose (Dextrose 50%) 25 ml STAT PRN IV Hypoglycemia 10/15/17 06:15 11/14/17 06:14 Dextrose (Dextrose 50%) 50 ml STAT PRN IV Hypoglycemia 10/15/17 06:15 11/14/17 06:14 Docusate Sodium (Colace) 100 mg TWICE A DAY ORAL 10/15/17 09:00 11/14/17 08:59 10/19/17 09:39 Folic Acid (Folate) 2 mg DAILY ORAL 10/20/17 09:00 11/17/17 08:59 Heparin Sodium (Porcine) (Heparin 5000 units/ml) 5,000 units EVERY 12 HOURS SUBQ 10/15/17 09:00 11/14/17 08:59 10/19/17 09:45 Insulin Aspart (NovoLOG) BEFORE MEALS AND HS SUBQ 10/15/17 06:30 11/14/17 06:29 10/19/17 17:01 Lactulose (Cephulac) 10 gm THREE TIMES A DAY ORAL 10/15/17 13:00 11/14/17 12:59 10/19/17 13:10 Levothyroxine Sodium (Synthroid) 50 mcg DAILY IV 10/18/17 16:30 11/17/17 16:29 10/19/17 09:40 Lisinopril (Zestril) 10 mg DAILY ORAL 10/20/17 09:00 11/14/17 08:59 Metoprolol Succinate (Toprol XL) 100 mg QHS ORAL 10/15/17 21:00 11/14/17 20:59 10/17/17 20:57 Montelukast Sodium (Singulair) 10 mg DAILY ORAL 10/15/17 09:00 11/14/17 08:59 10/19/17 09:39 Sodium Phosphate (Fleet's Sodium Phosl Enema) 133 ml DAILY PRN RECTAL Constipation 10/15/17 06:15 11/14/17 06:14 10/15/17 12:11 Assessment/Plan Status: stable Assessment/Plan 57 yo female with multiple co-morbidities. Whitney placed. Failed one voiding trial. Unsure etiology. Maybe colon/constipation mediated. Recommend whitney catheter for now. 1. f/u office visit for voiding trial. Corby Hayward M.D. Oct 19, 2017 17:12
--- NOTE | 2017-10-19 17:12 | Consultation ---
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 Found to have urinary obstruction and stool impaction on CT. No vomiting, decrease appetite, ID called due to positive urine culture. Allergies: Coded Allergies: No Known Allergies (Unverified , 12/03/13) Medication History Scheduled Amlodipine Besylate* (Amlodipine Besylate*), 5 MG ORAL DAILY, (Reported) Insulin Detemir (Levemir), 12 SUBQ BEDTIME, (Reported) Insulin Lispro (Humalog), 0 SUBQ SLIDING SCALE, (Reported) Linaclotide (Linzess), 145 MCG PO DAILY, (Reported) Metoprolol Succinate* (Metoprolol Succinate*), 100 MG ORAL HS, (Reported) Montelukast Sodium* (Montelukast Sodium*), 10 MG ORAL DAILY, (Reported) Quinapril Hcl (Quinapril Hcl), 20 MG PO DA, (Reported) Patient History Healthcare decision maker Resuscitation status Full Code Advanced Directive on File No Patient History Narrative Pmhx: as above Shx:The patient denies any tobacco, alcohol, or drug abuse. Fhx: non contributory Review of Systems All Other Systems: negative except mentioned in HPI Physical Exam Physical Exam Narrative General Appearance: WD/WN HEENT: normocephalic, anicteric Respiratory/Chest: chest wall non-tender, lungs clear Breasts: no masses Cardiovascular: normal peripheral pulses Abdomen: normal bowel sounds, soft, non tender Extremities: no clubbing Skin: no rash Last 24 Hour Vital Signs Date Time Temp Pulse Resp B/P (MAP) Pulse Ox O2 Delivery O2 Flow Rate FiO2 10/19/17 16:00 98.0 70 17 120/70 96 Room Air 98.0 10/19/17 12:00 97.8 85 18 121/75 95 Room Air 97.8 10/19/17 09:43 66 120/78 10/19/17 09:42 120/78 10/19/17 08:00 98.1 66 18 120/78 98 Room Air 98.1 10/19/17 04:10 97.8 62 16 101/65 95 97.8 10/19/17 00:20 98.1 69 17 123/75 96 98.1 10/18/17 21:00 70 120/74 10/18/17 20:15 98.2 70 16 120/74 96 98.2 Intake and Output 10/18/17 10/19/17 19:00 07:00 Intake Total 580 ml 120 ml Output Total 300 ml 850 ml Balance 280 ml -730 ml Intake Oral 580 ml 120 ml Output Urine Total 300 ml 850 ml # Voids 2 Laboratory Tests Test 10/19/17 06:05 White Blood Count 10.0 K/UL (4.8-10.8) Red Blood Count 4.15 M/UL (4.20-5.40) L Hemoglobin 13.5 G/DL (12.0-16.0) Hematocrit 38.3 % (37.0-47.0) Mean Corpuscular Volume 92 FL (80-99) Mean Corpuscular Hemoglobin 32.6 PG (27.0-31.0) H Mean Corpuscular Hemoglobin Concent 35.4 G/DL (32.0-36.0) Red Cell Distribution Width 12.0 % (11.6-14.8) Platelet Count 227 K/UL (150-450) Mean Platelet Volume 6.7 FL (6.5-10.1) Neutrophils (%) (Auto) 62.9 % (45.0-75.0) Lymphocytes (%) (Auto) 28.3 % (20.0-45.0) Monocytes (%) (Auto) 6.0 % (1.0-10.0) Eosinophils (%) (Auto) 1.9 % (0.0-3.0) Basophils (%) (Auto) 0.8 % (0.0-2.0) Sodium Level 139 MMOL/L (136-145) Potassium Level 4.1 MMOL/L (3.5-5.1) Chloride Level 104 MMOL/L (98-107) Carbon Dioxide Level 26 MMOL/L (21-32) Anion Gap 9 mmol/L (5-15) Blood Urea Nitrogen 8 mg/dL (7-18) Creatinine 0.7 MG/DL (0.55-1.30) Estimat Glomerular Filtration Rate > 60 mL/min (>60) Glucose Level 81 MG/DL (74-106) Calcium Level 8.8 MG/DL (8.5-10.1) Height (Feet): 5 Height (Inches): 7.00 Weight (Pounds): 135 Medications Current Medications Medications (Trade) Dose Ordered Sig/Aleksandr Route PRN Reason Start Time Stop Time Status Last Admin Dose Admin Bisacodyl (Dulcolax) 10 mg BID PRN RECTAL Constipation 10/15/17 06:15 11/14/17 06:14 Ceftriaxone Sodium 1 gm/ Dextrose 110 ml @ 220 mls/hr Q24H IVPB 10/19/17 13:00 10/26/17 12:59 10/19/17 13:57 Dextrose (Dextrose 50%) 25 ml STAT PRN IV Hypoglycemia 10/15/17 06:15 11/14/17 06:14 Dextrose (Dextrose 50%) 50 ml STAT PRN IV Hypoglycemia 10/15/17 06:15 11/14/17 06:14 Docusate Sodium (Colace) 100 mg TWICE A DAY ORAL 10/15/17 09:00 11/14/17 08:59 10/19/17 09:39 Folic Acid (Folate) 2 mg DAILY ORAL 10/20/17 09:00 11/17/17 08:59 Heparin Sodium (Porcine) (Heparin 5000 units/ml) 5,000 units EVERY 12 HOURS SUBQ 10/15/17 09:00 11/14/17 08:59 10/19/17 09:45 Insulin Aspart (NovoLOG) BEFORE MEALS AND HS SUBQ 10/15/17 06:30 11/14/17 06:29 10/18/17 16:56 Lactulose (Cephulac) 10 gm THREE TIMES A DAY ORAL 10/15/17 13:00 11/14/17 12:59 10/19/17 13:10 Levothyroxine Sodium (Synthroid) 50 mcg DAILY IV 10/18/17 16:30 11/17/17 16:29 10/19/17 09:40 Lisinopril (Zestril) 10 mg DAILY ORAL 10/20/17 09:00 11/14/17 08:59 Metoprolol Succinate (Toprol XL) 100 mg QHS ORAL 10/15/17 21:00 7/3/18 20:59 10/17/17 20:57 Montelukast Sodium (Singulair) 10 mg DAILY ORAL 10/15/17 09:00 11/14/17 08:59 10/19/17 09:39 Sodium Phosphate (Fleet's Sodium Phosl Enema) 133 ml DAILY PRN RECTAL Constipation 10/15/17 06:15 11/14/17 06:14 10/15/17 12:11 Assessment/Plan Assessment/Plan Abx: Ceftriaxone 10/19- Assessment: Pyuria/bacteriuria- in the setting of urinary obstruction -u/a 10/14 wbc 0-2, nit neg, leuk +1; repeat 10/17 wbc 10-15, nit +, leuk +3; ucx >100k E.coli (long S) -CT abd/p: Markedly distended, stool-filled rectum (rectal fecalith), with probable at least mild circumferential rectal wall thickening, possibly secondary to stercoral proctitis. Markedly distended urinary bladder (estimated volume = 2000 cc), possibly secondary to bladder outlet obstruction due to the distended stool-filled rectum; mild to moderate probable associated bilateral hydroureteronephrosis. Small hyperenhancing indeterminant subcapsular hepatic nodule. Further evaluation with nonemergent targeted hepatic ultrasound is suggested. 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 -f/u cx -monitor CBC/BMP, temperatures -aspiration precautions Thank you for this consultation. Will continue to follow along with you. Discussed with Sandie Isaac M.D. Oct 19, 2017 17:12
[2017-10-19 20:00] VITALS: BP 135/84
[2017-10-19] MEDS: Cephalexin 250 MG/5 ML SUSP 100ml ORAL SCH (20:25)
[2017-10-19] MEDS: Metoprolol Tartrate 50mg tab ORAL SCH (20:29)
[2017-10-20] VITALS: BP 130/70
[2017-10-20 04:00] VITALS: BP 133/80
[2017-10-20] MEDS: NovoLOG Insulin Flexpen SUBQ SCH ×3 (05:52→16:51)
[2017-10-20 06:42] LABS: EOSINOPHILS % (AUTO) 2.6 % (0.0-3.0); HEMATOCRIT 37.3 % (37.0-47.0); LYMPHOCYTES % (AUTO) 30.1 % (20.0-45.0); MEAN CORPUSCULAR VOLUME 92 FL (80-99); MONOCYTES % (AUTO) 7.8 % (1.0-10.0); NEUTROPHILS % (AUTO) 58.4 % (45.0-75.0); PLATELET COUNT 251 K/UL (150-450); RED BLOOD COUNT 4.07 M/UL (4.20-5.40); WHITE BLOOD COUNT 7.9 K/UL (4.8-10.8)
[2017-10-20 07:04] LABS: ALANINE AMINOTRANSFERASE 38 U/L (12-78); ALBUMIN 3.4 G/DL (3.4-5.0); ALKALINE PHOSPHATASE 55 U/L (46-116); ASPARTATE AMINO TRANSFERASE 29 U/L (15-37); BILIRUBIN,DIRECT 0.1 MG/DL (0.0-0.3); BILIRUBIN,TOTAL 0.3 MG/DL (0.2-1.0)
[2017-10-20 07:05] LABS: ANION GAP 10 mmol/L (5-15); BLOOD UREA NITROGEN 13 mg/dL (7-18); CALCIUM 8.9 MG/DL (8.5-10.1); CARBON DIOXIDE 26 MMOL/L (21-32); CHLORIDE 105 MMOL/L (98-107); CREATININE 0.8 MG/DL (0.55-1.30); PHOSPHORUS 4.6 MG/DL (2.5-4.9); SODIUM 140 MMOL/L (136-145)
[2017-10-20 08:00] VITALS: BP 131/83
[2017-10-20] MEDS ORDERED: Lisinopril 10mg tab ORAL SCH (09:00)
[2017-10-20] MEDS: Lactulose 10gm/15ml UDC ORAL SCH ×3 (09:29→18:24)
[2017-10-20] MEDS: Docusate 100mg cap ORAL SCH ×2 (09:29→18:24)
[2017-10-20] MEDS: Montelukast 10mg tablet ORAL SCH (09:29)
[2017-10-20] MEDS: Cephalexin 250 MG/5 ML SUSP 100ml ORAL SCH (09:29)
[2017-10-20] MEDS: Metoprolol Tartrate 50mg tab ORAL SCH (09:30)
[2017-10-20] MEDS: Heparin 5000 units/ml inj SUBQ SCH (09:32)
[2017-10-20] MEDS ORDERED: D5 1/2NS 1000ml IV ONE (09:39)
[2017-10-20] MEDS ORDERED: Tubing IV Secondary IV ONE (09:39)
--- NOTE | 2017-10-20 09:43 | Infectious Diseases Prog Note ---
Assessment/Plan Assessment/Plan Assessment: Pyuria/bacteriuria- in the setting of urinary obstruction- unable to asses for symptoms -u/a 6/ wbc 0-2, nit neg, leuk +1; repeat 10/17 wbc 10-15, nit +, leuk +3; ucx >100k E.coli (long S) -CT abd/p: Markedly distended, stool-filled rectum (rectal fecalith), with probable at least mild circumferential rectal wall thickening, possibly secondary to stercoral proctitis. Markedly distended urinary bladder (estimated volume = 2000 cc), possibly secondary to bladder outlet obstruction due to the distended stool-filled rectum; mild to moderate probable associated bilateral hydroureteronephrosis. Small hyperenhancing indeterminant subcapsular hepatic nodule. Further evaluation with nonemergent targeted hepatic ultrasound is suggested. 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 -/ SP Ceftriaxone #1 -f/u cx -monitor CBC/BMP, temperatures -aspiration precautions Thank you for this consultation. Will continue to follow along with you. Discussed with RN. Subjective Allergies: Coded Allergies: No Known Allergies (Unverified , 12/03/13) Subjective afebrile no leukocytosis Objective Vital Signs Last 24 Hour Vital Signs Date Time Temp Pulse Resp B/P (MAP) Pulse Ox O2 Delivery O2 Flow Rate FiO2 10/20/17 09:30 70 131/83 10/20/17 09:29 131/83 10/20/17 08:00 98.2 70 20 131/83 97 Room Air 98.2 10/20/17 04:00 98.0 80 19 133/80 96 Room Air 98.0 10/20/17 00:00 98.2 80 17 130/70 97 Room Air 98.2 10/19/17 20:29 84 135/84 10/19/17 20:00 98.4 84 16 135/84 96 Room Air 98.4 10/19/17 16:00 98.0 70 17 120/70 96 Room Air 98.0 10/19/17 12:00 97.8 85 18 121/75 95 Room Air 97.8 10/19/17 09:43 66 120/78 10/19/17 09:42 120/78 Height (Feet): 5 Height (Inches): 7.00 Weight (Pounds): 135 Objective General Appearance: WD/WN HEENT: normocephalic, anicteric Respiratory/Chest: chest wall non-tender, lungs clear Breasts: no masses Cardiovascular: normal peripheral pulses Abdomen: normal bowel sounds, soft, non tender Extremities: no clubbing Skin: no rash Microbiology Date/Time Source Procedure Growth Status 10/17/17 17:30 Urine,Clean Catch Urine Culture - Final Escherichia Coli Complete Laboratory Tests Test 10/20/17 05:00 White Blood Count 7.9 K/UL (4.8-10.8) Red Blood Count 4.07 M/UL (4.20-5.40) L Hemoglobin 13.0 G/DL (12.0-16.0) Hematocrit 37.3 % (37.0-47.0) Mean Corpuscular Volume 92 FL (80-99) Mean Corpuscular Hemoglobin 31.9 PG (27.0-31.0) H Mean Corpuscular Hemoglobin Concent 34.8 G/DL (32.0-36.0) Red Cell Distribution Width 12.0 % (11.6-14.8) Platelet Count 251 K/UL (150-450) Mean Platelet Volume 6.7 FL (6.5-10.1) Neutrophils (%) (Auto) 58.4 % (45.0-75.0) Lymphocytes (%) (Auto) 30.1 % (20.0-45.0) Monocytes (%) (Auto) 7.8 % (1.0-10.0) Eosinophils (%) (Auto) 2.6 % (0.0-3.0) Basophils (%) (Auto) 1.0 % (0.0-2.0) Sodium Level 140 MMOL/L (136-145) Potassium Level 4.0 MMOL/L (3.5-5.1) Chloride Level 105 MMOL/L (98-107) Carbon Dioxide Level 26 MMOL/L (21-32) Anion Gap 10 mmol/L (5-15) Blood Urea Nitrogen 13 mg/dL (7-18) Creatinine 0.8 MG/DL (0.55-1.30) Estimat Glomerular Filtration Rate > 60 mL/min (>60) Glucose Level 110 MG/DL (74-106) H Calcium Level 8.9 MG/DL (8.5-10.1) Phosphorus Level 4.6 MG/DL (2.5-4.9) Magnesium Level 1.9 MG/DL (1.8-2.4) Total Bilirubin 0.3 MG/DL (0.2-1.0) Direct Bilirubin 0.1 MG/DL (0.0-0.3) Aspartate Amino Transf (AST/SGOT) 29 U/L (15-37) Alanine Aminotransferase (ALT/SGPT) 38 U/L (12-78) Alkaline Phosphatase 55 U/L (46-116) Total Protein 7.7 G/DL (6.4-8.2) Albumin 3.4 G/DL (3.4-5.0) Thyroid Stimulating Hormone (TSH) 155.491 uiU/mL (0.358-3.740) Current Medications Medications (Trade) Dose Ordered Sig/Aleksandr Route PRN Reason Start Time Stop Time Status Last Admin Dose Admin Bisacodyl (Dulcolax) 10 mg BID PRN RECTAL Constipation 10/15/17 06:15 11/14/17 06:14 Cephalexin (Keflex) 500 mg Q12HR ORAL 10/19/17 21:00 10/26/17 20:59 10/20/17 09:29 Dextrose (Dextrose 50%) 25 ml STAT PRN IV Hypoglycemia 10/15/17 06:15 11/14/17 06:14 Dextrose (Dextrose 50%) 50 ml STAT PRN IV Hypoglycemia 10/15/17 06:15 11/14/17 06:14 Docusate Sodium (Colace) 100 mg TWICE A DAY ORAL 10/15/17 09:00 11/14/17 08:59 10/20/17 09:29 Folic Acid (Folate) 2 mg DAILY ORAL 10/20/17 09:00 11/17/17 08:59 10/20/17 09:30 Heparin Sodium (Porcine) (Heparin 5000 units/ml) 5,000 units EVERY 12 HOURS SUBQ 10/15/17 09:00 11/14/17 08:59 10/20/17 09:32 Insulin Aspart (NovoLOG) BEFORE MEALS AND HS SUBQ 10/15/17 06:30 11/14/17 06:29 10/19/17 20:28 Lactulose (Cephulac) 10 gm THREE TIMES A DAY ORAL 10/15/17 13:00 11/14/17 12:59 10/20/17 09:29 Levothyroxine Sodium (Synthroid) 50 mcg DAILY IV 10/18/17 16:30 11/17/17 16:29 10/20/17 09:32 Lisinopril (Zestril) 10 mg DAILY ORAL 10/20/17 09:00 11/14/17 08:59 10/20/17 09:29 Metoprolol Tartrate (Lopressor) 50 mg Q12HR ORAL 10/19/17 21:00 11/18/17 20:59 10/20/17 09:30 Montelukast Sodium (Singulair) 10 mg DAILY ORAL 10/15/17 09:00 11/14/17 08:59 10/20/17 09:29 Sodium Phosphate (Fleet's Sodium Phosl Enema) 133 ml DAILY PRN RECTAL Constipation 10/15/17 06:15 11/14/17 06:14 10/15/17 12:11 Sandie Meredith M.D. Oct 20, 2017 09:43
[2017-10-20 12:00] VITALS: BP 125/74
--- NOTE | 2017-10-20 13:04 | Nephrology Progress Note ---
Assessment/Plan Problem List: (1) Hypothyroid Assessment: severe (2) Hypokalemia (3) Impacted stool in rectum (4) Urinary obstruction, unspecified Assessment Severe HYPOTHYROIDISM- HypoKalemia Dehydration HTN mild anemia UTI Others: 1) History of asthma (2) Impacted stool in rectum (3) Hypertension (4) Urinary obstruction, unspecified (5) DM (diabetes mellitus) Plan DC PO KCL IV Rocephin for UTI adjust BP meds, DC Norvasc Anemia alvarado IV synthroid- on discharge switch to PO synthroid Subjective ROS Limited/Unobtainable: No Constitutional: Reports: malaise Objective Objective Last 24 Hour Vital Signs Date Time Temp Pulse Resp B/P (MAP) Pulse Ox O2 Delivery O2 Flow Rate FiO2 10/20/17 12:00 97.9 77 18 125/74 99 Room Air 97.9 10/20/17 09:30 70 131/83 10/20/17 09:29 131/83 10/20/17 08:00 98.2 70 20 131/83 97 Room Air 98.2 10/20/17 04:00 98.0 80 19 133/80 96 Room Air 98.0 10/20/17 00:00 98.2 80 17 130/70 97 Room Air 98.2 10/19/17 20:29 84 135/84 10/19/17 20:00 98.4 84 16 135/84 96 Room Air 98.4 10/19/17 16:00 98.0 70 17 120/70 96 Room Air 98.0 Intake and Output 10/19/17 10/20/17 19:00 07:00 Intake Total 630 ml 300 ml Output Total 450 ml 750 ml Balance 180 ml -450 ml Intake Oral 400 ml 300 ml IV Total 110 ml Other 120 ml Output Urine Total 450 ml 750 ml Stool Total 0 ml Laboratory Tests 10/20/17 05:00: White Blood Count 7.9, Red Blood Count 4.07L, Hemoglobin 13.0, Hematocrit 37.3, Mean Corpuscular Volume 92, Mean Corpuscular Hemoglobin 31.9H, Mean Corpuscular Hemoglobin Concent 34.8, Red Cell Distribution Width 12.0, Platelet Count 251, Mean Platelet Volume 6.7, Neutrophils (%) (Auto) 58.4, Lymphocytes (%) (Auto) 30.1, Monocytes (%) (Auto) 7.8, Eosinophils (%) (Auto) 2.6, Basophils (%) (Auto ) 1.0, Sodium Level 140, Potassium Level 4.0, Chloride Level 105, Carbon Dioxide Level 26, Anion Gap 10, Blood Urea Nitrogen 13, Creatinine 0.8, Estimat Glomerular Filtration Rate > 60, Glucose Level 110H, Calcium Level 8.9, Phosphorus Level 4.6, Magnesium Level 1.9, Total Bilirubin 0.3, Direct Bilirubin 0.1, Aspartate Amino Transf (AST/SGOT) 29, Alanine Aminotransferase ( ALT/SGPT) 38, Alkaline Phosphatase 55, Total Protein 7.7, Albumin 3.4, Thyroid Stimulating Hormone (TSH) 155.491H Height (Feet): 5 Height (Inches): 7.00 Weight (Pounds): 135 General Appearance: no apparent distress Abdomen: soft Objective no change DENISHA MCDONNELL Oct 20, 2017 13:04
--- NOTE | 2017-10-20 13:13 | GI Progress Note ---
Assessment/Plan Problems: (1) DM (diabetes mellitus) ICD Codes: E11.9 - Type 2 diabetes mellitus without complications SNOMED: 88604228 (2) Constipation ICD Codes: K59.00 - Constipation, unspecified SNOMED: 92472480 (3) Impacted stool in rectum ICD Codes: K56.41 - Fecal impaction SNOMED: 33048591 (4) Dysphagia ICD Codes: R13.10 - Dysphagia, unspecified SNOMED: 73132820, 542749789 Status: stable Status Narrative Discussed with Dr. Cardenas. Assessment/Plan CT AP reviewed >> stool impaction old GT site healed anemia work up reviewed >> folate deficiency constipation hypothyroidism okay for DC per GI standpoint on diet ppi bowel regime >> lactulose + colace + miralax PT/OT evaluation fu labs outpatient GI procedures The patient was seen and examined at bedside and all new and available data was reviewed in the patients chart. I agree with the above findings, impression and plan. (Patient seen earlier today. Signature stamp does not reflect patient encounter time.). - Chang Cardenas MD Subjective Gastrointestinal/Abdominal: Reports: abdomen distended Objective Last 24 Hour Vital Signs Date Time Temp Pulse Resp B/P (MAP) Pulse Ox O2 Delivery O2 Flow Rate FiO2 10/20/17 12:00 97.9 77 18 125/74 99 Room Air 97.9 10/20/17 09:30 70 131/83 10/20/17 09:29 131/83 10/20/17 08:00 98.2 70 20 131/83 97 Room Air 98.2 10/20/17 04:00 98.0 80 19 133/80 96 Room Air 98.0 10/20/17 00:00 98.2 80 17 130/70 97 Room Air 98.2 10/19/17 20:29 84 135/84 10/19/17 20:00 98.4 84 16 135/84 96 Room Air 98.4 10/19/17 16:00 98.0 70 17 120/70 96 Room Air 98.0 Intake and Output 10/19/17 10/20/17 19:00 07:00 Intake Total 630 ml 300 ml Output Total 450 ml 750 ml Balance 180 ml -450 ml Intake Oral 400 ml 300 ml IV Total 110 ml Other 120 ml Output Urine Total 450 ml 750 ml Stool Total 0 ml Laboratory Tests Test 10/20/17 05:00 White Blood Count 7.9 K/UL (4.8-10.8) Red Blood Count 4.07 M/UL (4.20-5.40) L Hemoglobin 13.0 G/DL (12.0-16.0) Hematocrit 37.3 % (37.0-47.0) Mean Corpuscular Volume 92 FL (80-99) Mean Corpuscular Hemoglobin 31.9 PG (27.0-31.0) H Mean Corpuscular Hemoglobin Concent 34.8 G/DL (32.0-36.0) Red Cell Distribution Width 12.0 % (11.6-14.8) Platelet Count 251 K/UL (150-450) Mean Platelet Volume 6.7 FL (6.5-10.1) Neutrophils (%) (Auto) 58.4 % (45.0-75.0) Lymphocytes (%) (Auto) 30.1 % (20.0-45.0) Monocytes (%) (Auto) 7.8 % (1.0-10.0) Eosinophils (%) (Auto) 2.6 % (0.0-3.0) Basophils (%) (Auto) 1.0 % (0.0-2.0) Sodium Level 140 MMOL/L (136-145) Potassium Level 4.0 MMOL/L (3.5-5.1) Chloride Level 105 MMOL/L (98-107) Carbon Dioxide Level 26 MMOL/L (21-32) Anion Gap 10 mmol/L (5-15) Blood Urea Nitrogen 13 mg/dL (7-18) Creatinine 0.8 MG/DL (0.55-1.30) Estimat Glomerular Filtration Rate > 60 mL/min (>60) Glucose Level 110 MG/DL (74-106) H Calcium Level 8.9 MG/DL (8.5-10.1) Phosphorus Level 4.6 MG/DL (2.5-4.9) Magnesium Level 1.9 MG/DL (1.8-2.4) Total Bilirubin 0.3 MG/DL (0.2-1.0) Direct Bilirubin 0.1 MG/DL (0.0-0.3) Aspartate Amino Transf (AST/SGOT) 29 U/L (15-37) Alanine Aminotransferase (ALT/SGPT) 38 U/L (12-78) Alkaline Phosphatase 55 U/L (46-116) Total Protein 7.7 G/DL (6.4-8.2) Albumin 3.4 G/DL (3.4-5.0) Thyroid Stimulating Hormone (TSH) 155.491 uiU/mL (0.358-3.740) Height (Feet): 5 Height (Inches): 7.00 Weight (Pounds): 135 General Appearance: WD/WN, no apparent distress, alert Cardiovascular: normal rate Respiratory/Chest: normal breath sounds, no respiratory distress Abdominal Exam: normal bowel sounds, non tender, soft Extremities: normal range of motion, non-tender Lina Carpio NP Oct 20, 2017 13:13
--- NOTE | 2017-10-20 15:01 | Pulmonology Progress Note ---
Assessment/Plan Problems: (1) History of asthma (2) Impacted stool in rectum (3) Hypertension (4) Urinary obstruction, unspecified (5) DM (diabetes mellitus) Assessment/Plan all reviewed awake, comfortable eating well symptomatic treatment respiratory treatment prn titrate fio2 to sat of 92% sliding scale couldn't void without Vaughn, swallow study pending Subjective ROS Limited/Unobtainable: Yes Interval Events: having dysphasia Allergies: Coded Allergies: No Known Allergies (Unverified , 12/03/13) Objective Last 24 Hour Vital Signs Date Time Temp Pulse Resp B/P (MAP) Pulse Ox O2 Delivery O2 Flow Rate FiO2 10/20/17 12:00 97.9 77 18 125/74 99 Room Air 97.9 10/20/17 09:30 70 131/83 10/20/17 09:29 131/83 10/20/17 08:00 98.2 70 20 131/83 97 Room Air 98.2 10/20/17 04:00 98.0 80 19 133/80 96 Room Air 98.0 10/20/17 00:00 98.2 80 17 130/70 97 Room Air 98.2 10/19/17 20:29 84 135/84 10/19/17 20:00 98.4 84 16 135/84 96 Room Air 98.4 10/19/17 16:00 98.0 70 17 120/70 96 Room Air 98.0 Intake and Output 10/19/17 10/20/17 19:00 07:00 Intake Total 630 ml 300 ml Output Total 450 ml 750 ml Balance 180 ml -450 ml Intake Oral 400 ml 300 ml IV Total 110 ml Other 120 ml Output Urine Total 450 ml 750 ml Stool Total 0 ml General Appearance: WD/WN HEENT: normocephalic Respiratory/Chest: chest wall non-tender, lungs clear, normal breath sounds Cardiovascular: normal peripheral pulses, normal rate Abdomen: normal bowel sounds, soft, non tender Skin: no rash Neurologic/Psychiatric: director law enforcement II-XII grossly normal Microbiology Date/Time Source Procedure Growth Status 10/17/17 17:30 Urine,Clean Catch Urine Culture - Final Escherichia Coli Complete Laboratory Tests 10/20/17 05:00: White Blood Count 7.9, Red Blood Count 4.07L, Hemoglobin 13.0, Hematocrit 37.3, Mean Corpuscular Volume 92, Mean Corpuscular Hemoglobin 31.9H, Mean Corpuscular Hemoglobin Concent 34.8, Red Cell Distribution Width 12.0, Platelet Count 251, Mean Platelet Volume 6.7, Neutrophils (%) (Auto) 58.4, Lymphocytes (%) (Auto) 30.1, Monocytes (%) (Auto) 7.8, Eosinophils (%) (Auto) 2.6, Basophils (%) (Auto ) 1.0, Sodium Level 140, Potassium Level 4.0, Chloride Level 105, Carbon Dioxide Level 26, Anion Gap 10, Blood Urea Nitrogen 13, Creatinine 0.8, Estimat Glomerular Filtration Rate > 60, Glucose Level 110H, Calcium Level 8.9, Phosphorus Level 4.6, Magnesium Level 1.9, Total Bilirubin 0.3, Direct Bilirubin 0.1, Aspartate Amino Transf (AST/SGOT) 29, Alanine Aminotransferase ( ALT/SGPT) 38, Alkaline Phosphatase 55, Total Protein 7.7, Albumin 3.4, Thyroid Stimulating Hormone (TSH) 155.491H Current Medications Medications (Trade) Dose Ordered Sig/Aleksandr Route PRN Reason Start Time Stop Time Status Last Admin Dose Admin Bisacodyl (Dulcolax) 10 mg BID PRN RECTAL Constipation 10/15/17 06:15 11/14/17 06:14 Cephalexin (Keflex) 500 mg Q12HR ORAL 10/19/17 21:00 10/26/17 20:59 10/20/17 09:29 Dextrose (Dextrose 50%) 25 ml STAT PRN IV Hypoglycemia 10/15/17 06:15 11/14/17 06:14 Dextrose (Dextrose 50%) 50 ml STAT PRN IV Hypoglycemia 10/15/17 06:15 11/14/17 06:14 Docusate Sodium (Colace) 100 mg TWICE A DAY ORAL 10/15/17 09:00 11/14/17 08:59 10/20/17 09:29 Folic Acid (Folate) 2 mg DAILY ORAL 10/20/17 09:00 11/17/17 08:59 10/20/17 09:30 Heparin Sodium (Porcine) (Heparin 5000 units/ml) 5,000 units EVERY 12 HOURS SUBQ 10/15/17 09:00 11/14/17 08:59 10/20/17 09:32 Insulin Aspart (NovoLOG) BEFORE MEALS AND HS SUBQ 10/15/17 06:30 11/14/17 06:29 10/19/17 20:28 Lactulose (Cephulac) 10 gm THREE TIMES A DAY ORAL 10/15/17 13:00 11/14/17 12:59 10/20/17 13:14 Levothyroxine Sodium (Synthroid) 50 mcg DAILY IV 10/18/17 16:30 11/17/17 16:29 10/20/17 09:32 Lisinopril (Zestril) 10 mg DAILY ORAL 10/20/17 09:00 11/14/17 08:59 10/20/17 09:29 Metoprolol Tartrate (Lopressor) 50 mg Q12HR ORAL 10/19/17 21:00 11/18/17 20:59 10/20/17 09:30 Montelukast Sodium (Singulair) 10 mg DAILY ORAL 10/15/17 09:00 11/14/17 08:59 10/20/17 09:29 Sodium Phosphate (Fleet's Sodium Phosl Enema) 133 ml DAILY PRN RECTAL Constipation 10/15/17 06:15 11/14/17 06:14 10/15/17 12:11 Bridget Macias MD Oct 20, 2017 15:01
[2017-10-20 16:00] VITALS: BP 106/67
--- NOTE | 2017-10-20 16:07 | General Progress Note ---
Assessment/Plan Problem List: (1) Alteration consciousness ICD Codes: R40.4 - Transient alteration of awareness SNOMED: 0827607 (2) UTI (lower urinary tract infection) ICD Codes: N39.0 - UTI (lower urinary tract infection) SNOMED: 7544356 (3) Hypothyroid ICD Codes: E03.9 - Hypothyroidism, unspecified SNOMED: 57691594 (4) DM (diabetes mellitus) ICD Codes: E11.9 - Type 2 diabetes mellitus without complications SNOMED: 34780518 (5) Hypertension ICD Codes: I10 - Essential (primary) hypertension SNOMED: 62861391 (6) Impacted stool in rectum ICD Codes: K56.41 - Fecal impaction SNOMED: 73395291 (7) Urinary obstruction, unspecified ICD Codes: N13.9 - Obstructive and reflux uropathy, unspecified SNOMED: 6730567 (8) Constipation ICD Codes: K59.00 - Constipation, unspecified SNOMED: 19518453 Status: stable, progressing Assessment/Plan ot pt diet abx bp bs control laxitives cbc bmp am dc w hh if clear Subjective Allergies: Coded Allergies: No Known Allergies (Unverified , 12/03/13) All Systems: reviewed and negative except above Subjective sleepy calm Objective Last 24 Hour Vital Signs Date Time Temp Pulse Resp B/P (MAP) Pulse Ox O2 Delivery O2 Flow Rate FiO2 10/20/17 12:00 97.9 77 18 125/74 99 Room Air 97.9 10/20/17 09:30 70 131/83 10/20/17 09:29 131/83 10/20/17 08:00 98.2 70 20 131/83 97 Room Air 98.2 10/20/17 04:00 98.0 80 19 133/80 96 Room Air 98.0 10/20/17 00:00 98.2 80 17 130/70 97 Room Air 98.2 10/19/17 20:29 84 135/84 10/19/17 20:00 98.4 84 16 135/84 96 Room Air 98.4 Intake and Output 10/19/17 10/20/17 19:00 07:00 Intake Total 630 ml 300 ml Output Total 450 ml 750 ml Balance 180 ml -450 ml Intake Oral 400 ml 300 ml IV Total 110 ml Other 120 ml Output Urine Total 450 ml 750 ml Stool Total 0 ml Laboratory Tests 10/20/17 05:00: White Blood Count 7.9, Red Blood Count 4.07L, Hemoglobin 13.0, Hematocrit 37.3, Mean Corpuscular Volume 92, Mean Corpuscular Hemoglobin 31.9H, Mean Corpuscular Hemoglobin Concent 34.8, Red Cell Distribution Width 12.0, Platelet Count 251, Mean Platelet Volume 6.7, Neutrophils (%) (Auto) 58.4, Lymphocytes (%) (Auto) 30.1, Monocytes (%) (Auto) 7.8, Eosinophils (%) (Auto) 2.6, Basophils (%) (Auto ) 1.0, Sodium Level 140, Potassium Level 4.0, Chloride Level 105, Carbon Dioxide Level 26, Anion Gap 10, Blood Urea Nitrogen 13, Creatinine 0.8, Estimat Glomerular Filtration Rate > 60, Glucose Level 110H, Calcium Level 8.9, Phosphorus Level 4.6, Magnesium Level 1.9, Total Bilirubin 0.3, Direct Bilirubin 0.1, Aspartate Amino Transf (AST/SGOT) 29, Alanine Aminotransferase ( ALT/SGPT) 38, Alkaline Phosphatase 55, Total Protein 7.7, Albumin 3.4, Thyroid Stimulating Hormone (TSH) 155.491H Height (Feet): 5 Height (Inches): 7.00 Weight (Pounds): 135 General Appearance: lethargic EENT: normal ENT inspection Neck: normal alignment Cardiovascular: normal peripheral pulses, normal rate, regular rhythm Respiratory/Chest: chest wall non-tender, lungs clear, normal breath sounds Abdomen: normal bowel sounds, non tender, soft Extremities: normal inspection Edema: no edema noted Arm (L), no edema noted Arm (R), no edema noted Leg (L), no edema noted Leg (R), no edema noted Pedal (L), no edema noted Pedal (R), no edema noted Generalized Neurologic: motor weakness Skin: normal pigmentation, warm/dry Objective whitney in place Edgard Wilburn DO Oct 20, 2017 16:07
[2017-10-20] MEDS ORDERED: CEPHALEXIN500 MG ORAL (18:29)
[2017-10-20] MEDS ORDERED: CEPHALEXIN250 MG/5 M ORAL (18:32)
[2017-10-20 20:00] VITALS: BP 113/75
--- NOTE | 2017-10-23 08:28 | Discharge Summary ---
Discharge Summary Discharge Summary _ DATE OF ADMISSION: 10/14/2017 DATE OF DISCHARGE: 10/20/2017 REASON FOR ADMISSION: 57 years old female with history of CVA with left-sided weakness, diabetes, hypertension, hypothyroidism, presented with the abdominal discomfort. Per son , patient had progressive swelling on the right lower side of the abdomen where she had a discomfort. Patient had a bowel movement that morning which was of small amount and liquid consistency. No vomiting. Patient had a long-standing history of constipation. CT of the abdomen and pelvis revealed markedly distended stool-filled rectum ( rectal fecalith) with probable at least mild circumferential rectal wall thickening, possible secondary to stercoral proctitis. Markedly distended urinary bladder with estimated volume of 2000 mL , possibly secondary to bladder outlet obstruction due to the distended stool-filled rectum , [id number] probable associated bilateral hydroureteronephrosis. Initial urinalysis revealed no evidence of urinary tract infection. WBC- 11.3 , stable hemoglobin and hematocrit. Potassium- 2.8 stable renal parameters. Patient admitted with diagnosis of urinary bladder outlet obstruction, constipation, diabetes, hypertension, hypokalemia, hypothyroidism, possible urinary tract infection. CONSULTANTS: pulmonary Dr. Macias ID specialist Dr. Jones GI specialist Dr. Cardenas garbage depot worker Dr. Ornelas Urologist [facility] COURSE: Patient admitted to medical surgical floor and started on the IV hydration. Patient was unable to void . Urologist consult was requested. Vaughn catheter was placed . GI closely followed, bowel regimen was instituted with the lactulose, Colace and MiraLAX. Patient started on empiric antibiotic . Repeated urinalysis showed evidence of urinary tract infection. Urine culture revealed Escherichia coli. Antibiotic regimen provided as per ID recommendations. Housing Counselor closely followed. Renal parameters and electrolytes were closely monitored, electrolytes were replaced as needed, nephrotoxic were avoided. Potassium stable prior to discharge. Patient apparently was not taking at home thyroid supplement. TSH- 181.9 . Patient started on IV Synthroid , repeated TSH in 3 days still significantly elevated -155.4. Son was counseled on importance of compliance with medication regimen, and specifically Synthroid. Recheck thyroid function test in 3 weeks and titrate dose of Synthroid as per on primary care provider. Supplemental oxygen and pulmonary toilet were on board as needed, no evidence of asthma exacerbation. Singular was continued. Blood sugar was managed with sliding scale insulin. PT/OT therapy was provided. Patient had bowel movement . Patient was on PPI. Old G-tube site was healed. GI specialist cleared patient for discharge and recommended outpatient GI procedure. Anemia workup was consistent with folate deficiency. Folic acid was added to existing medication regimen. Blood pressure was managed with multiply antihypertensive regimen, and remained stable. DVT prophylaxis provided . Swallow evaluation revealed moderate oropharyngeal dysphagia . Diet provided for [id number] as per speech therapist recommendations with strict aspiration/ reflux precautions and one-to-one feeding. Speech therapist recommended video swallow study which could be done as an outpatient. Patient was stabilized and was ready for discharge home with home health services to follow. FINAL DIAGNOSES: Urinary outlet obstruction secondary to fecal impaction Constipation Severe hypothyroidism Probable urinary tract infection with Escherichia coli bacteriuria Dehydration Mild anemia, folate deficiency Hypertension Diabetes History of CVA with left-sided weakness History of asthma Dysphagia Hypokalemia DISCHARGE MEDICATIONS: See Medication Reconciliation list. DISCHARGE INSTRUCTIONS: Patient was discharged home with home health services. Follow-up with garbage depot worker for voiding trial. Outpatient GI procedure as recommended by GI specialist I have been assigned to dictate discharge summary for this account. I was not involved in the patient's management. Tita Cyr NP Oct 23, 2017 08:28
== END 2017-10-20 20:15 | disposition home health service (06) | DRG 694 ==
LOC: EMR 14:55 → 3E 18:52 → EDBEDREQ 19:39 → 3E 10-17 00:42
DX: N13.8 Other obstructive and reflux uropathy (principal); N39.0 Urinary tract infection, site not specified; I69.354 Hemiplegia and hemiparesis following cerebral infarction affecting left non-dominant side; K56.41 Fecal impaction; I10 Essential (primary) hypertension; E87.6 Hypokalemia; E11.9 Type 2 diabetes mellitus without complications; E86.0 Dehydration; D64.9 Anemia, unspecified; E03.9 Hypothyroidism, unspecified; B96.20 Unspecified Escherichia coli [E. coli] as the cause of diseases classified elsewhere; J45.909 Unspecified asthma, uncomplicated; R13.10 Dysphagia, unspecified; Z90.49 Acquired absence of other specified parts of digestive tract; R41.82 Altered mental status, unspecified
CPT/HCPCS: 36415; 74177; 80048; 80053; 80061; 80076; 81001; 81003; 82607; 82728; 82746; 82962; 82977; 83036; 83540; 83550; 83690; 83735; 84100; 84443; 84550; 85007; 85025; 87086; 87181; 97803; 99285; J1815; J8499

== ENCOUNTER 2017-12-14 14:09 | Outpatient (CLI) | payer MEDICARE, OTHER ==
[2017-12-14 14:00] VITALS: BP 114/78
[~2017-12-14 14:09] MED LIST changes: +CEPHALEXIN250 MG/5 M ORAL; +CEPHALEXIN500 MG ORAL
[2017-12-14] MEDS ORDERED: COLACE100 MG ORAL (14:39)
[2017-12-14] MEDS ORDERED: LACTULOSE20 GM/301 ORAL (14:39)
[2017-12-14] MEDS ORDERED: MIRALAX17 G2 ORAL (14:39)
--- NOTE | 2017-12-15 08:38 | GI Progress Note ---
Assessment/Plan Problems: (1) Constipation ICD Codes: K59.00 - Constipation, unspecified SNOMED: 88082864 (2) DM (diabetes mellitus) ICD Codes: E11.9 - Type 2 diabetes mellitus without complications SNOMED: 48612315 Status: stable Status Narrative Seen with Dr. Cardenas. Assessment/Plan cont healthy lifestyle diet Trial trulance RTC x 1 month The patient was seen and examined at bedside and all new and available data was reviewed in the patients chart. I agree with the above findings, impression and plan. (Patient seen earlier today. Signature stamp does not reflect patient encounter time.). - Chang Cardenas MD Subjective Gastrointestinal/Abdominal: Reports: constipated Subjective attempted colonoscopy in 2016 on healthy life style diet Objective Last 24 Hour Vital Signs Date Time Temp Pulse Resp B/P (MAP) Pulse Ox O2 Delivery O2 Flow Rate FiO2 12/14/17 14:00 98.6 84 16 114/78 94 98.6 General Appearance: WD/WN, no apparent distress, alert Cardiovascular: normal rate Respiratory/Chest: normal breath sounds, no respiratory distress Abdominal Exam: normal bowel sounds, non tender, soft Extremities: normal range of motion, non-tender Lina Carpio [employer] OFFICER Dec 15, 2017 08:38
== END 2017-12-14 14:42 | disposition home or self-care (01) ==
LOC: PAN 14:09
DX: K59.00 Constipation, unspecified (principal); E11.9 Type 2 diabetes mellitus without complications
CPT/HCPCS: 99212